=== PATIENT | male | born 1985 | race African-American/Black ===

== ENCOUNTER 2024-08-26 12:33 | Outpatient (AMB) | payer OTHER, SELFPAY ==
--- NOTE | 2024-08-26 12:34 | A.OFFPC_ITS ---
Vital Signs 08/26/24 12:38 Height 5 ft 8 in Weight 175 lb 4 oz BMI 26.6 BP 112/72 Blood Pressure Location Rt brachial Position Sitting Pulse 50 Pulse Source Pulse Oximeter Pulse Oximetry (%) 98 Oxygen Delivery Method Room Air Intake Visit Reasons: Est Care/Requesting PE Allergies No Known Allergies Allergy (Verified 08/26/24 12:39) Medication List - Last Reconciled 08/26/24 by Yamileth Weber MD No Known Home Meds Tobacco use date assessed: 08/26/24 Dental Screening Dental Screen Date: 08/26/24 Did you have a dental visit in the last 12 months?: Yes Did you have a dental problem in the last 6 months where you did not have access to dental care?: No Was dental information given to patient?: Patient has dentist HPI Est Care/Requesting PE HPI Details Patient is a 39-year-old gentlemen who work in if was Came in for establish care visit and physical exam Patient has no medical problem and taking no medication However he would like to talk about feeling depressed which has been happening for a while Patient says that he has a very stressful job and over the years it has taken its toll His has noticed that he is more irritable And when he comes home he does not have enough time for his 4 children He is also having difficulty sleeping He says that he enjoys his job but he is hardworking and like to get his job done He is requesting medication And therapy I have sent sertraline 25 mg tablet he is to start 1 in the morning Lab order placed to be done fasting And I have sent message to our behavior health coordinator so we can help him set up with a therapist Patient is to return in 3 weeks for follow-up appointment [facility] Social History Housing: House Patient Tobacco Use Status: Never used Tobacco e-Cigarette/Vaping Use: Never Used service: Yes Current occupational status: employed Cognitive needs: No Hearing needs: No Vision needs: No Questionnaire PHQ-9 Over the last 2 weeks, how often have you been bothered by any of the following problems? 1. Little interest or pleasure in doing things: several days 2. Feeling down, depressed, or hopeless: several days 3. Trouble falling or staying asleep, or sleeping too much: several days 4. Feeling tired or having little energy: several days 5. Poor appetite or overeating: not at all 6. Feeling bad about yourself - or that you are a failure or have let yourself or your family down: not at all 7. Trouble concentrating on things, such as reading the newspaper or watching television: not at all 8. Moving or speaking so slowly that other people could have noticed. Or the opposite - being so fidgety or restless that you have been moving around a lot more than usual: not at all 9. Thoughts that you would be better off or of hurting yourself in some way: not at all Total score: 4 Depression Screening Interpretation: Negative Depression Screening Done: Yes 56504 - PHQ-9 Billing: Yes Source: Developed by Drs. Brian Ang, Lisa Gomez, Johan Ivy and colleagues, with an educational tammi from [employer]. Thrive Questionnaire I am a: Patient What is your living situation today?: I have a steady place to live Within the past 12 months, did the food you bought not last and you didn't have the money to get more?: Never true Within the past 12 months, did you worry whether your food would run out before you got money to buy more?: Never true Do you have trouble paying for medicines?: No Do you have trouble getting transportation to medical appointments?: No Do you have trouble paying your heating and electricity bill?: No Do you have trouble taking care of your child, family member or friend?: No Do you have trouble with day-to-day activities such as bathing, preparing meals, shopping, managing finances, etc.?: No Are you interested in more education?: Yes Please select the resources that you would like help with: None Currently or been in a relationship where the following occur: No concerns reported THRIVE Score: 0 AUDIT C Alcohol Use Questionnaire (AUDIT-C) 1. How often do you have a drink containing alcohol?: Monthly or less 2. How many drinks containing alcohol do you have on a typical day when you are drinking?: 1 or 2 3. How often do you have six or more drinks on one occasion?: Never Total Score: 1 LINCOLN-7 AMB Questionnaire LINCOLN-7 Feeling nervous, anxious, or on edge: 0 = Not at all Not being able to stop or control worryin = Not at all Worrying too much about different things: 0 = Not at all Trouble relaxin = Several days Being so restless that it is hard to sit still: 0 = Not at all Becoming easily annoyed or irritable: 1 = Several days Feeling afraid as if something awful might happen: 0 = Not at all Total LINCOLN-7 score (0-4 normal; 5-9 mild; 10-14 moderate; 15-21 severe): 2 Source: Developed by Drs. Brian Ang, Lisa Gomez, Johan Ivy and colleagues, with an educational tammi from [employer]. Review of Systems Const Denies chills, Denies fever(s) and Denies headache(s) Eyes Denies blurry vision ENT Denies headache(s), Denies nasal discharge, Denies nasal obstruction, Denies odynophagia and Denies sinus pain Card Denies chest pain at rest and Denies chest pain with activity Resp Denies cough and Denies hemoptysis GI Denies diarrhea, Denies odynophagia, Denies vomiting and Denies hematemesis Reports as per HPI Musc Denies abnormal gait Skin/Breast Reports as per HPI Neuro Denies Neuro-related abnormal movements, Denies Abnormal speech present, Denies abnormal gait, Denies headache(s) and Denies Sensory deficit (Neuro) Psych Denies mood swings and Denies paranoia Endo Reports as per HPI Manuel/Lymph Reports as per HPI Aller/Immun Reports as per HPI Physical exam (Primary Care) Vital Signs: Last Vital Signs Pulse 50 08/26/24 12:38 BP 112/72 08/26/24 12:38 Pulse Ox 98 08/26/24 12:38 Oxygen Delivery Method Room Air 08/26/24 12:38 BMI result Body Mass Index 26.6 Tobacco/Smoking Status: Tobacco use Status Tobacco use date assessed 08/26/24 08/26/24 12:38 Patient Tobacco Use Status Never used Tobacco 08/26/24 12:42 e-Cigarette/Vaping Use Never Used 08/26/24 12:42 PHQ-9: PHQ-9 Score PHQ-9: Total score 4 08/26/24 12:57 Depression Screening Interpretation: Negative Currently or been in a relationship where the following occur: No concerns reported Const General: cooperative, comfortable and no acute distress Orientation/consciousness: patient oriented x3 HENMT Head: Yes normocephalic and Yes atraumatic Eyes General: appearance normal, both eyes and all related structures Pupils: Equal, round and reactive pupils present EOM: EOMs intact bilaterally Neck Neck: Yes supple and No lymphadenopathy Thyroid: Thyroid normal Lymphatic: no lymphadenopathy noted Resp Effort & Inspection: normal respiratory effort and able to speak in complete sentences Auscultation: clear to auscultation bilaterally Cardio Heart sounds: S1 normal heart sound present and S2 normal heart sound present GI Palpation (GI): Soft to palpation and nontender Auscultation: normal bowel sounds General: Yes no CVA tenderness Back/Spine/Pelvis Back: no CVA tenderness Skin General skin exam: elasticity normal and turgor normal Neuro General: patient oriented x3 and gait normal Cranial nerves: Yes Equal, round and reactive pupils present Speech: No Abnormal speech present Sensory Exam: No Sensory deficit (Neuro) Coordination: tandem gait normal and Romberg test negative Extrem General: Yes normal exam except as noted and No edema Coding Level of Care Code New Pt Level 4 (34830) New Pt Prev Care 40-64y(20047) Diagnoses Encounter for general adult medical examination with abnormal findings Z00.01 Mild episode of recurrent major depressive disorder F33.0 Active/Remission status: currently active Major depression episode severity: mild Difficulty sleeping G47.9 Stress at work Z56.6 Assessment & Plan Assessment & Plan (1) Encounter for general adult medical examination with abnormal findings: Code(s): Z00.01 - Encounter for general adult medical examination with abnormal findings Category: Medical (2) Major depression, recurrent: Code(s): F33.9 - Major depressive disorder, recurrent, unspecified Category: Medical Qualifiers: Active/Remission status: currently active Major depression episode severity: mild Qualified Code(s): F33.0 - Major depressive disorder, recurrent, mild (3) Difficulty sleeping: Code(s): G47.9 - Sleep disorder, unspecified Category: Medical (4) Stress at work: Code(s): Z56.6 - Other physical and mental strain related to work Category: Social Hx Plan Patient is a 39-year-old gentlemen who work in if was Came in for establish care visit and physical exam Patient has no medical problem and taking no medication However he would like to talk about feeling depressed which has been happening for a while Patient says that he has a very stressful job and over the years it has taken its toll His has noticed that he is more irritable And when he comes home he does not have enough time for his 4 children He is also having difficulty sleeping He says that he enjoys his job but he is hardworking and like to get his job done He is requesting medication And therapy I have sent sertraline 25 mg tablet he is to start 1 in the morning Lab order placed to be done fasting And I have sent message to our behavior health coordinator so we can help him set up with a therapist Patient is to return in 3 weeks for follow-up appointment Orders: Orders Lipid Panel Today F33.9 - Major depressive disorder, recurrent, unspecified, G47.9 - Sleep disorder, unspecified, Z00.01 - Encounter for general adult medical examination with abnormal findings, Z56.6 - Other physical and mental strain related to work TSH reflex Free T4 Today F33.9 - Major depressive disorder, recurrent, unspecified, G47.9 - Sleep disorder, unspecified, Z00.01 - Encounter for general adult medical examination with abnormal findings, Z56.6 - Other physical and mental strain related to work Complete Blood Count Auto Diff Today F33.9 - Major depressive disorder, recurrent, unspecified, G47.9 - Sleep disorder, unspecified, Z00.01 - Encounter for general adult medical examination with abnormal findings, Z56.6 - Other physical and mental strain related to work Comprehensive [place]. Panel Fast Today F33.9 - Major depressive disorder, recurrent, unspecified, G47.9 - Sleep disorder, unspecified, Z00.01 - Encounter for general adult medical examination with abnormal findings, Z56.6 - Other physical and mental strain related to work Medications: New sertraline 25 mg PO DAILY 30 tabs 0RF
[2024-08-26 12:38] VITALS: BP 112/72; PULSE 50; O2SAT 98; BMI 26.6
== END 2024-08-26 13:35 | disposition home or self-care (01) ==
PROVIDERS: Visit Provider Internal Medicine
DX: Z00.00 Encounter for general adult medical examination without abnormal findings (principal); F33.0 Major depressive disorder, recurrent, mild; G47.9 Sleep disorder, unspecified; Z56.6 Other physical and mental strain related to work

== ENCOUNTER → 2024-08-26 12:33 | Outpatient (BNVA) | payer OTHER, SELFPAY | PROVIDERS: Visit Provider Internal Medicine | DX: Z00.01 Encounter for general adult medical examination with abnormal findings (principal); F33.0 Major depressive disorder, recurrent, mild; G47.9 Sleep disorder, unspecified; Z56.6 Other physical and mental strain related to work | CPT/HCPCS: 96127; 99202 ==

== ENCOUNTER 2024-08-27 09:06 | Outpatient (REF) | payer OTHER, SELFPAY ==
[2024-08-27 13:04] LABS: MANUAL DIFF FLAG NO
[2024-08-27 13:06] LABS: Basophils Percent Auto 0.8 % (0-2); Eosinophils Absolute Auto 0.2 X10*3/uL (0.0-0.4); Eosinophils Percent Auto 3.9 % (0-4); Hemoglobin 13.6 g/dl (14.0-18.0); Lymphocytes Absolute Auto 1.1 X10*3/uL (1.2-4.9); Lymphocytes Percent Auto 28.8 % (20-40); Mean Corpuscular Hemoglobin 27.6 pg (27.0-33.0); Mean Corpuscular Volume 81.3 fL (80.0-98.0); Mean Platelet Volume 9.2 fL (9.4-12.4); Monocytes Absolute Auto 0.3 X10*3/uL (0.1-1.2); Monocytes Percent Auto 6.7 % (2-11); Neutrophils Absolute Auto 2.3 x10*3/uL (2.0-8.3); Neutrophils Percent Auto 59.8 % (45-73); Platelet Count 253 X10*3/uL (160-400); Red Blood Count 4.92 X10*6/uL (4.60-5.80); White Blood Count 3.9 X10*3/uL (4.8-10.8)
[2024-08-27 13:39] LABS: Alanine Aminotransferase 25 U/L (0-40); Albumin Level 4.4 g/dL (3.5-5.0); Alkaline Phosphatase 36 U/L (39-117); Anion Gap 12 (12-20); Aspartate Amino Transferase 23 U/L (5-37); Bilirubin Total 0.8 mg/dL (0.0-1.0); Blood Urea Nitrogen 10 mg/dL (9-16); Carbon Dioxide 27 mmol/L (22-29); Chloride 107 mmol/L (96-108); Cholesterol 199 mg/dL (<200); Estimated Glomerular Filt Rate > 60; Glucose Fasting 87 mg/dL (60-99); HDL Cholesterol 55 mg/dL (>40); LDL Cholesterol Calculated 130 mg/dL (<100); Potassium 4.3 mmol/L (3.3-5.1); Sodium 142 mmol/L (135-145); Total Protein 7.7 g/dL (6.5-8.0); Triglycerides 73 mg/dL (<150)
[2024-08-27 13:43] LABS: TSH reflex Free T4 0.73 uIU/mL (0.32-4.0)
== END 2024-08-27 09:07 | disposition home or self-care (01) ==
LOC: HO.HMGCLDS 09:06
PROVIDERS: PCP Internal Medicine; Visit Provider Internal Medicine
DX: Z00.01 Encounter for general adult medical examination with abnormal findings (principal); F33.9 Major depressive disorder, recurrent, unspecified; G47.9 Sleep disorder, unspecified; Z56.6 Other physical and mental strain related to work
CPT/HCPCS: 36415; 80053; 80061; 84443; 85025

== ENCOUNTER 2024-09-18 08:32 | Outpatient (AMB) | payer OTHER, SELFPAY ==
--- NOTE | 2024-09-18 08:34 | MHC.PC.OV ---
Vital Signs 09/18/24 08:36 Height 5 ft 8 in Weight 175 lb 8 oz BMI 26.7 BP 112/74 Blood Pressure Location Rt brachial Position Sitting Pulse 52 Pulse Source Pulse Oximeter Pulse Oximetry (%) 98 Oxygen Delivery Method Room Air Intake Visit Reasons: 3 week follow up Allergies No Known Allergies Allergy (Verified 09/18/24 08:39) Medication List - Last Reconciled 09/18/24 by Yamileth Weber MD sertraline 25 mg PO DAILY Tobacco use date assessed: 09/18/24 Dental Screening Dental Screen Date: 09/18/24 Did you have a dental visit in the last 12 months?: Yes Did you have a dental problem in the last 6 months where you did not have access to dental care?: No Was dental information given to patient?: Patient has dentist HPI 3 week follow up HPI Details Patient is a 39-year-old gentleman came in today for three-month follow-up appointment on irritable mood He was started on sertraline 25 mg, patient tolerated medication well however sees no effect I am increasing the dose to 50 mg He will be starting therapy today Labs done recently reviewed Hemoglobin is slightly low, we will repeat that again in 2 months before his follow-up appointment [facility]LY [facility] Social History Housing: House Patient Tobacco Use Status: Never used Tobacco e-Cigarette/Vaping Use: Never Used service: Yes Current occupational status: employed Cognitive needs: No Hearing needs: No Vision needs: No Questionnaire PHQ-9 Over the last 2 weeks, how often have you been bothered by any of the following problems? 1. Little interest or pleasure in doing things: not at all 2. Feeling down, depressed, or hopeless: not at all 3. Trouble falling or staying asleep, or sleeping too much: not at all 4. Feeling tired or having little energy: not at all 5. Poor appetite or overeating: not at all 6. Feeling bad about yourself - or that you are a failure or have let yourself or your family down: not at all 7. Trouble concentrating on things, such as reading the newspaper or watching television: not at all 8. Moving or speaking so slowly that other people could have noticed. Or the opposite - being so fidgety or restless that you have been moving around a lot more than usual: not at all 9. Thoughts that you would be better off or of hurting yourself in some way: not at all Total score: 0 Depression Screening Interpretation: Negative Depression Screening Done: Yes 31760 - PHQ-9 Billing: Yes Source: Developed by Drs. Brian Ang, Lisa Gomez, Johan Ivy and colleagues, with an educational tammi from [employer]. Thrive Questionnaire Date Thrive assessed: 09/18/24 I am a: Patient What is your living situation today?: I have a steady place to live Within the past 12 months, did the food you bought not last and you didn't have the money to get more?: Never true Within the past 12 months, did you worry whether your food would run out before you got money to buy more?: Never true Do you have trouble paying for medicines?: No Do you have trouble getting transportation to medical appointments?: No Do you have trouble paying your heating and electricity bill?: No Do you have trouble taking care of your child, family member or friend?: No Do you have trouble with day-to-day activities such as bathing, preparing meals, shopping, managing finances, etc.?: No Are you currently unemployed and looking for a job?: No Are you interested in more education?: Yes Please select the resources that you would like help with: None Currently or been in a relationship where the following occur: No concerns reported THRIVE Score: 0 AUDIT C Alcohol Use Questionnaire (AUDIT-C) 1. How often do you have a drink containing alcohol?: Monthly or less 2. How many drinks containing alcohol do you have on a typical day when you are drinking?: 1 or 2 3. How often do you have six or more drinks on one occasion?: Never Total Score: 1 Score Reviewed/Action Taken: Yes LINCOLN-7 AMB Questionnaire LINCOLN-7 Date LINCOLN - 7 assessed: 09/18/24 Feeling nervous, anxious, or on edge: 0 = Not at all Not being able to stop or control worryin = Not at all Worrying too much about different things: 0 = Not at all Trouble relaxin = Not at all Being so restless that it is hard to sit still: 0 = Not at all Becoming easily annoyed or irritable: 0 = Not at all Feeling afraid as if something awful might happen: 0 = Not at all Total LINCOLN-7 score (0-4 normal; 5-9 mild; 10-14 moderate; 15-21 severe): 0 Source: Developed by Drs. Brian Ang, Lisa Gomez, Johan Ivy and colleagues, with an educational tammi from [employer]. LINCOLN-7 Assessment Billing LINCOLN-7 Assessment Tool: LINCOLN-7 Assessment 26046 Review of Systems Const Denies chills and Denies fever(s) ENT Denies epistaxis and Denies nasal discharge Card Denies chest pain Resp Denies chest congestion, Denies cough and Denies hemoptysis GI Denies diarrhea and Denies nausea Skin/Breast Denies rash Neuro Reports no additional complaints Psych Reports no additional complaints Endo Reports no additional complaints Physical exam (Primary Care) Vital Signs: Last Vital Signs Pulse 52 09/18/24 08:36 BP 112/74 09/18/24 08:36 Pulse Ox 98 09/18/24 08:36 Oxygen Delivery Method Room Air 09/18/24 08:36 BMI result Body Mass Index 26.7 Tobacco/Smoking Status: Tobacco use Status Tobacco use date assessed 09/18/24 09/18/24 08:40 Patient Tobacco Use Status Never used Tobacco 09/18/24 08:40 e-Cigarette/Vaping Use Never Used 09/18/24 08:40 PHQ-9: PHQ-9 Score PHQ-9: Total score 0 09/18/24 08:40 Depression Screening Interpretation: Negative Thrive Assessment: Date of Thrive Assessment Date Thrive assessed 09/18/24 09/18/24 08:40 Currently or been in a relationship where the following occur: No concerns reported Const General: cooperative, comfortable and no acute distress Orientation/consciousness: patient oriented x3 HENMT Head: Yes normocephalic Eyes General: appearance normal, both eyes and all related structures Neck Neck: Yes supple Resp Effort & Inspection: normal respiratory effort, no cough and no stridor Skin General skin exam: turgor normal Neuro General: patient oriented x3, tone normal and moves all extremities Extrem Right lower extremity: no edema Left lower extremity: no edema Coding Level of Care Code Est Pt Level 3 (50475) Diagnoses Microcytic anemia D50.9 Mild episode of recurrent major depressive disorder F33.0 Active/Remission status: currently active Major depression episode severity: mild Difficulty sleeping G47.9 Additional Codes LINCOLN-7 Assessment Billing - LINCOLN-7 Assessment Tool: LINCOLN-7 Assessment 87910 ([id number]) Assessment & Plan Assessment & Plan (1) Microcytic anemia: Code(s): D50.9 - Iron deficiency anemia, unspecified Category: Medical (2) Major depression, recurrent: Code(s): F33.9 - Major depressive disorder, recurrent, unspecified Category: Medical Qualifiers: Active/Remission status: currently active Major depression episode severity: mild Qualified Code(s): F33.0 - Major depressive disorder, recurrent, mild (3) Difficulty sleeping: Code(s): G47.9 - Sleep disorder, unspecified Category: Medical Plan Patient is a 39-year-old gentleman came in today for three-month follow-up appointment on irritable mood He was started on sertraline 25 mg, patient tolerated medication well however sees no effect I am increasing the dose to 50 mg He will be starting therapy today Labs done recently reviewed Hemoglobin is slightly low, we will repeat that again in 2 months before his follow-up appointmen Orders: Orders Complete Blood Count Auto Diff Today D50.9 - Iron deficiency anemia, unspecified Vitamin B12 Today D50.9 - Iron deficiency anemia, unspecified Ferritin Today D50.9 - Iron deficiency anemia, unspecified Medications: Changed From sertraline 25 mg PO DAILY 30 tabs 0RF To sertraline 50 mg PO DAILY 90 tabs 0RF 90 days
[2024-09-18 08:36] VITALS: BP 112/74; PULSE 52; O2SAT 98; BMI 26.7
== END 2024-09-18 08:50 | disposition home or self-care (01) ==
PROVIDERS: Visit Provider Internal Medicine
DX: D50.9 Iron deficiency anemia, unspecified (principal); F33.0 Major depressive disorder, recurrent, mild; G47.9 Sleep disorder, unspecified

== ENCOUNTER → 2024-09-18 08:32 | Outpatient (BNVA) | payer OTHER, SELFPAY | PROVIDERS: Visit Provider Internal Medicine | DX: D50.9 Iron deficiency anemia, unspecified (principal); F33.0 Major depressive disorder, recurrent, mild; G47.9 Sleep disorder, unspecified | CPT/HCPCS: 96127; 99212 ==

== ENCOUNTER 2024-10-21 15:01 | Outpatient (REF) | payer OTHER, SELFPAY ==
[2024-10-22 01:58] LABS: CT PCR NOT DETECTED (Not Detect.); NG PCR NOT DETECTED (Not Detect.)
[2024-10-22 08:18] LABS: HBS Num1 46.58 mIU/mL (0-7.99); HIV AB/AG Nonreactive (Nonreactive); HIV Num 1 0.05 S/CO (0.00-0.99); ~HepC Num1 0.16 S/CO (0.00-0.79); ~Hepatitis B Surface Antibody REACTIVE (Nonreactive); ~Hepatitis C Antibody Nonreactive (Nonreactive)
[2024-10-22 08:32] LABS: Syphilis Screen Nonreactive (Nonreactive)
[2024-10-23 18:53] LABS: Herpes Simplex Type 2 IgG <0.90 index
== END 2024-10-21 15:02 | disposition home or self-care (01) ==
LOC: HO.HMGCLDS 15:01
PROVIDERS: PCP Internal Medicine; Visit Provider Internal Medicine
DX: Z20.2 Contact with and (suspected) exposure to infections with a predominantly sexual mode of transmission (principal)
CPT/HCPCS: 36415; 86695; 86696; 86706; 86780; 86803; 87389; 87491; 87591; 99212

== ENCOUNTER 2024-10-21 15:01 | Outpatient (AMB) | payer OTHER, SELFPAY ==
[2024-10-21 15:04] VITALS: BP 118/84; PULSE 67; O2SAT 100; BMI 26.2
--- NOTE | 2024-10-21 15:04 | A.OFFPC_ITS ---
Vital Signs 10/21/24 15:04 Height 5 ft 8 in Weight 172 lb 2 oz BMI 26.2 BP 118/84 Blood Pressure Location Rt brachial Position Sitting Pulse 67 Pulse Source Pulse Oximeter Pulse Oximetry (%) 100 Oxygen Delivery Method Room Air Intake Visit Reasons: STD check Allergies No Known Allergies Allergy (Verified 10/21/24 15:06) Medication List - Last Reconciled 10/21/24 by Yamileth Weber MD sertraline 50 mg PO DAILY 90 days Tobacco use date assessed: 10/21/24 Dental Screening Dental Screen Date: 09/18/24 HPI STD check HPI Details Chief Complaint Request for a full sexually transmitted disease screening following spouse's positive chlamydia test. Assessment and Plan 39-year-old male with no history of sexu ally transmitted diseases presenting for a full STD screening due to his 's recent positive test for chlamydia. The patient denies any penile discharge, dysuria, or lower back pain. The possibilit y of a false positive could be considered, yet due to the 's confirmed diagnosis, a proactive approach involving empirical treatment and laboratory testing was deemed appropriate. 1. Chlamydia Infection A full STD screening was requested, comprising a urine test for chlamydia and gonorrhea, and a blood test for HIV, syphilis, herpes, and hepatitis. The patient was instructed to provide urine and blood samples. Pending lab availability, the patient was advised to return if needed due to holiday closures. Given the 's positive chlamydia test, empirical antibiotic prescription will be administered without awaiting lab results. The patient is informed about the importance of taking the antibiotics promptly and the need for both partners to be treated. Problem List - Chlamydia infection Patient Instructions - Provide urine and blood samples for ST D screening as directed. - Start the prescribed antibiotic regime n immediately; do not wait for test results. - Ensure sexual partners are treated sim ultaneously. - Be aware of lab closures and plan [facility] le submissions accordingly. - Report any symptoms such as discharge, pain on urination, or back pain if they occur. [facility] Social History Housing: House Patient Tobacco Use Status: Never used Tobacco e-Cigarette/Vaping Use: Never Used service: Yes Current occupational status: employed Cognitive needs: No Hearing needs: No Vision needs: No Questionnaire Thrive Questionnaire Date Thrive assessed: 08/26/24 I am a: Patient What is your living situation today?: I have a steady place to live Within the past 12 months, did the food you bought not last and you didn't have the money to get more?: Never true Within the past 12 months, did you worry whether your food would run out before you got money to buy more?: Never true Do you have trouble paying for medicines?: No Do you have trouble getting transportation to medical appointments?: No Do you have trouble paying your heating and electricity bill?: No Do you have trouble taking care of your child, family member or friend?: No Do you have trouble with day-to-day activities such as bathing, preparing meals, shopping, managing finances, etc.?: No Are you currently unemployed and looking for a job?: No Are you interested in more education?: Yes Please select the resources that you would like help with: None Currently or been in a relationship where the following occur: No concerns reported THRIVE Score: 0 LINCOLN-7 AMB Questionnaire LINCOLN-7 Date LINCOLN - 7 assessed: 09/18/24 Source: Developed by Drs. Brian Ang, Lisa Gomez, Johan Ivy and colleagues, with an educational tammi from [employer]. Review of Systems Const All systems reviewed & are unremarkable except as noted in HPI and below Physical exam (Primary Care) Vital Signs: Last Vital Signs Pulse 67 10/21/24 15:04 BP 118/84 10/21/24 15:04 Pulse Ox 100 10/21/24 15:04 Oxygen Delivery Method Room Air 10/21/24 15:04 BMI result Body Mass Index 26.2 Tobacco/Smoking Status: Tobacco use Status Tobacco use date assessed 10/21/24 10/21/24 15:06 Patient Tobacco Use Status Never used Tobacco 10/21/24 15:06 e-Cigarette/Vaping Use Never Used 10/21/24 15:06 Thrive Assessment: Date of Thrive Assessment Date Thrive assessed 08/26/24 10/21/24 15:06 Currently or been in a relationship where the following occur: No concerns reported Const General: no acute distress Orientation/consciousness: patient oriented x3 Eyes General: appearance normal, both eyes and all related structures Resp Effort & Inspection: normal respiratory effort and able to speak in complete sentences Neuro General: patient oriented x3 Psych Mental Status: mental status grossly normal Coding Level of Care Code Est Pt Level 3 (08529) Diagnoses STD exposure Z20.2 Assessment & Plan Assessment & Plan (1) STD exposure: Code(s): Z20.2 - Contact with and (suspected) exposure to infections with a predominantly sexual mode of transmission Category: Medical Plan Chief Complaint Request for a full sexually transmitted disease screening following spouse's positive chlamydia test. Assessment and Plan 39-year-old male with no history of sexually transmitted diseases presenting for a full STD screening due to his 's recent positive test for chlamydia. The patient denies any penile discharge, dysuria, or lower back pain. The possibility of a false positive could be considered, yet due to the 's confirmed diagnosis, a proactive approach involving empirical treatment and laboratory testing was deemed appropriate. 1. Chlamydia Infection A full STD screening was requested, comprising a urine test for chlamydia and gonorrhea, and a blood test for HIV, syphilis, herpes, and hepatitis. The patient was instructed to provide urine and blood samples. Pending lab availabil ity, the patient was advised to return if needed due to holiday closures. Given the 's positive chlamydia test, empirical antibiotic prescription will be administered without awaiting lab results. The patient is informed about the importance of taking the antibiotics promptly and the need for both partners to be treated. Problem List - Chlamydia infection Patient Instructions - Provide urine and blood samples for STD screening as directed. - Start the prescribed antibiotic regimen immediately; do not wait for test results. - Ensure sexual partners are treated simultaneously. - Be aware of lab closures and plan sample submissions accordingly. - Report any symptoms such as discharge, pain on urination, or back pain if they occur. Orders: Orders Hepatitis C Antibody Today Z20.2 - Contact with and (suspected) exposure to infections with a predominantly sexual mode of transmission Syphilis Screen Today Z20.2 - Contact with and (suspected) exposure to infections with a predominantly sexual mode of transmission CT NG by PCR Today Z20.2 - Contact with and (suspected) exposure to infections with a predominantly sexual mode of transmission HIV Ab/Ag Today Z20.2 - Contact with and (suspected) exposure to infections with a predominantly sexual mode of transmission Herpes Simplex Virus Ab IgG Today Z20.2 - Contact with and (suspected) exposure to infections with a predominantly sexual mode of transmission Hepatitis B Surface Antibody Today Z20.2 - Contact with and (suspected) exposure to infections with a predominantly sexual mode of transmission Medications: New doxycycline hyclate 100 mg PO BID 14 caps 0RF 7 days
== END 2024-10-21 15:34 | disposition home or self-care (01) ==
PROVIDERS: PCP Internal Medicine; Visit Provider Internal Medicine
DX: Z20.2 Contact with and (suspected) exposure to infections with a predominantly sexual mode of transmission (principal)

== ENCOUNTER 2024-10-29 08:45 | Outpatient (AMB) | payer OTHER, SELFPAY ==
--- NOTE | 2024-10-29 09:13 | A.OFFPC_ITS ---
Intake Visit Reasons: Discuss Results Allergies No Known Allergies Allergy (Verified 10/29/24 09:14) Medication List - Last Reconciled 10/30/24 by Yamileth Weber MD sertraline 50 mg PO DAILY 90 days Tobacco use date assessed: 10/29/24 Dental Screening Dental Screen Date: 10/29/24 Did you have a dental visit in the last 12 months?: Yes Did you have a dental problem in the last 6 months where you did not have access to dental care?: No Was dental information given to patient?: Patient has dentist HPI Discuss Results HPI Details Chief Complaint Clarification of laboratory test results showing Herpes Simplex Virus Type 1 (HSV-1) positivity without history of cold sores. Assessment and Plan 39-year-old male presenting with concern s over the interpretation of recent la boratory test results identified as positive for Herpes Simplex Virus Type 1 (HSV-1). The patient denies any history of symptomatic cold sores, though the serology confirms HSV-1 infection. All other sexually transmitted infection screenings, including HIV, gonorrhea, chlamydia, syphilis, and hepatitis C, returned negative results. The patient has immunity to Hepatitis B, likely attributable to prior vaccination, as indicated by the presence of antibodies. The patient seeks reassurance and clarification regarding the infectivity and potential transmission risks associated with his HSV-1 status. 1. Herpes Simplex Virus Type 1 Hsv-1 Discussed the nature of HSV-1 infection, emphasizing that asymptomatic individuals can still carry the virus. Explained that transmission occurs primar amanda through mucus membrane contact during active lesion phases. Advised on avoiding kissing and oral-genital contact when lesions are present to minimize transmission risk. No active treatment is required unless symptomatic lesions occur. 2. Immunity To Hepatitis B Acknowledged that the presence of antibodies suggests immunity, likely from previous vaccination. No further intervention is necessary, but continued monitoring for hepatitis status is routine. Problem List - Herpes Simplex Virus Type 1 (HSV-1) - Immunity to Hepatitis B Patient Instructions - Avoid intimate contact such as kissing or oral-genital contact when experiencing any form of active HSV-1 lesion to prevent transmission. - Maintain routine health check-ups and monitor for any new symptoms or lesions. - Keep up to date with routine immunizat ions and health screenings. - Contact healthcare provider if new sym ptoms develop or for further queries regarding HSV-1 management. [facility] Social History Housing: House Patient Tobacco Use Status: Never used Tobacco e-Cigarette/Vaping Use: Never Used service: Yes Current occupational status: employed Cognitive needs: No Hearing needs: No Vision needs: No Questionnaire Thrive Questionnaire Date Thrive assessed: 08/26/24 AUDIT C Alcohol Use Questionnaire (AUDIT-C) 1. How often do you have a drink containing alcohol?: Monthly or less 2. How many drinks containing alcohol do you have on a typical day when you are drinking?: 1 or 2 3. How often do you have six or more drinks on one occasion?: Never Total Score: 1 Score Reviewed/Action Taken: Yes LINCOLN-7 AMB Questionnaire LINCOLN-7 Date LINCOLN - 7 assessed: 09/18/24 Source: Developed by Drs. Brian Ang, Lisa Gomez, Johan Ivy and colleagues, with an educational tammi from [employer] by [employer]. Review of Systems Const Denies chills and Denies fever(s) ENT Denies epistaxis and Denies nasal discharge Card Denies chest pain Resp Denies chest congestion, Denies cough and Denies hemoptysis GI Denies diarrhea and Denies nausea Skin/Breast Denies rash Neuro Reports no additional complaints Psych Reports no additional complaints Endo Reports no additional complaints Physical exam (Primary Care) Tobacco/Smoking Status: Tobacco use Status Tobacco use date assessed 10/29/24 10/29/24 09:15 Patient Tobacco Use Status Never used Tobacco 10/29/24 09:15 e-Cigarette/Vaping Use Never Used 10/29/24 09:15 Thrive Assessment: Date of Thrive Assessment Date Thrive assessed 08/26/24 10/29/24 09:15 Telehealth Telehealth Telehealth Platform: [facility] Location of provider rendering services: practice address Location of patient: address on file Patient Identification confirmed using: Name, : Yes Telehealth method: voice only Patient verbally consented to treatment: Yes Patient verbally consented to billing insurance company: Yes Patient informed of any privacy concerns related to visit: Yes Minutes spent on Phone/Video with Pt.: 12 Coding Level of Care Code Tele Est Pt Level 3 (75424) Diagnoses Herpes simplex type 1 antibody positive B00.9 Assessment & Plan Assessment & Plan (1) Herpes simplex type 1 antibody positive: Code(s): B00.9 - Herpesviral infection, unspecified Category: Medical Plan Chief Complaint Clarification of laboratory test results showing Herpes Simplex Virus Type 1 (HSV-1) positivity without history of cold sores. Assessment and Plan 39-year-old male presenting with concerns over the interpretation of recent laboratory test results identified as positive for Herpes Simplex Virus Type 1 (HSV-1). The patient denies any history of symptomatic cold sores, though the serology confirms HSV-1 infection. All other sexually transmitted infection screenings, including HIV, gonorrhea, chlamydia, syphilis, and hepatitis C, returned negative results. The patient has immunity to Hepatitis B, likely attributable to prior vaccination, as indicated by the presence of antibodies. The patient seeks reassurance and clarification regarding the infectivity and potential transmission risks associated with his HSV-1 status. 1. Herpes Simplex Virus Type 1 Hsv-1 Discussed the nature of HSV-1 infection, emphasizing that asymptomatic individuals can still carry the virus. Explained that transmission occurs primarily through mucus membrane contact during active lesion phases. Advised on avoiding kissing and oral-genital contact when lesions are present to minimize transmission risk. No active treatment is required unless symptomatic lesions occur. 2. Immunity To Hepatitis B Acknowledged that the presence of antibodies suggests immunity, likely from previous vaccination. No further intervention is necessary, but continued monitoring for hepatitis status is routine. Problem List - Herpes Simplex Virus Type 1 (HSV-1) - Immunity to Hepatitis B Patient Instructions - Avoid intimate contact such as kissing or oral-genital contact when experiencing any form of active HSV-1 lesion to prevent transmission. - Maintain routine health check-ups and monitor for any new symptoms or lesions. - Keep up to date with routine immunizations and health screenings. - Contact healthcare provider if new symptoms develop or for further queries regarding HSV-1 management.
--- OUTSIDE RECORDS SUMMARY | 2024-11-04 00:29 | XMS_ITS | Continuity of Care Document ---
Author Name [facility] Organization [facility] Care Team Providers Care Lead Accountant Name Role Phone [facility] Unavailable Unavailable Problems Combined list of problems from Department of Defense and Veterans Affairs facilities. It does not include entries that were removed or entered in error. 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 Active Condition DoD right ankle joint pain Active Condition DoD visit for: administrative purpose Inactive Condition DoD sickle cell trait Active Condition DoD ankle sprain right Inactive Condition DoD joint pain, localized in the knee Inactive Condition DoD visit for: services physical Inactive Condition DoD Need For Vaccination Against Influenza Inactive Condition DoD Patient Counseling Medical Management Individual Patient Inactive Condition DoD assessment of patient condition work-related Inactive Condition DoD essential hypertension benign Inactive Condition DoD Need For Vaccination Hepatitis A Inactive Condition Pt. received Adult Hep A by [employer] Lot#[id number], expiration date 07 Nov 2008 on 12 Aug 2008. The vaccine was given in the vaccine was given in the left arm. Administered by, TSgt Kristy Cunningham Independent Duty Document Restorer. All VIS's were received. DoD Need For Vaccination Polio Inactive Condition Pt. receiv ed IPV by Sanofi Pasteur, Lot# [id number], expiration date Aug 03 on Aug 02. The vaccine was given in the left leg. Administered by, TSgt Kristy Cunningham Independent Duty Document Restorer. All VIS's were received. DoD Other Physical Therapy Inactive Condition DoD orthopedic disorders impingement syndrome shoulder Inactive Condition DoD tendonitis rotator cuff Inactive Condition DoD Blood Pressure Isolated Elevated Inactive Condition Pt. was se en for 2 day bp check. His avg bp for day #1 is 134/67, and day #2 was 131/75. Diet and exercised were stressed. Pt was instructed to f/u with the provider within a month. DoD tendonitis shoulder Inactive Condition Refer to PT for rehab. Obtain x-ray. Discussed use of meds. Relative rest/activiy modification. RTC 3 weeks or prn. 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 Medication Details Route Status Patient Instructions Prescription Expires Prescription Number Last Dispense Date Ordering Provider Order Date Order Qty Source acetaminoph en 325 mg oral tablet 3 tab(s), Oral, every 6 hr, PRN pain or fever, not to exceed 4000 mg/day, # 30 tab(s), 0 total refill(s ), Maintena nce, 3 tab(s) Oral every 6 hr,x7 days,PRN :as needed for pain or fever,In str:not to exceed 4000 mg/day, Pharmacy : [facility] Oral (given by mouth) Discont [place] 10/30/2023 30.0 [facility] acetaminoph en 325 mg oral tablet 3 tab(s), Oral, every 6 hr, PRN pain or fever, not to exceed 4000 mg/day, # 30 tab(s), 0 total refill(s ), Maintena nce, 3 tab(s) Oral every 6 hr,x7 days,PRN :pain or fever,In str:not to exceed 4000 mg/day, Pharmacy : [facility] Oral (given by mouth) Ordered 11/06/2023 30.0 0437A -D [facility] Debrox Earwax Removal Kit 6.5% otic solution 5 drop(s), Ear-Left , BID, as directed on package labeling , # 30 mL, 0 total refill(s ), Maintena nce, 5 drop(s) Ear-Left BID,Inst r:as directed on package labeling , Pharmacy : [facility] Left ear Complet ed 11/06/2023 30.0 0052A-A [facility] ibuprofen 600 mg oral tablet 1 tab(s), Oral, every 8 hr, not to exceed 3200 mg/day, # 30 tab(s), 0 total refill(s ), Acute, 02/08/24 5:00:00 AM CDT, 1 tab(s) Oral every 8 hr,Instr :not to exceed 3200 mg/day, Pharmacy : [facility] Oral (given by mouth) Complet ed 02/08/2024 30.0 0287C-A [facility] ibuprofen 800 mg oral tablet 1 tab(s), Oral, every 8 hr, PRN fever or mild pain, not to exceed 3200 mg/day with food or milk, # 30 tab(s), 0 total refill(s ), Maintena nce, 1 tab(s) Oral every 8 hr,x7 days,PRN :fever or mild pain,Ins tr:not to exceed 3200 mg/day; with food or milk, Pharmacy : [facility] Oral (given by mouth) Ordered 11/06/2023 30.0 0437A -D [facility] lidocaine 5% patch Topical, Daily, PRN pain (moderat e), 0 total refill(s ), Maintena nce Topica l (on the skin) Ordered 7C-A [facility] Lidoderm 5% topical film See Instruct ions, 1 to 3 patches topicall y to area of pain. Leave on for up to 12 hours within a 24 hour period (12 hours on, 12 hours off), # 15 patch(es ), 0 total refill(s ), Maintena nce, 1 to 3 patches topicall y to area of pain. Leave on for up to 12 hours within a 24 hour period (12 hours on, 12 hours off), Pharmacy : [facility] Ordered 15.0 0437A-D [facility] methocarbam ol 500 mg oral tablet tab(s), Oral, PRN pain (moderat e), 0 total refill(s ), Maintena nce Oral (given by mouth) Complet ed 11/06/2023 0287C-A [facility] Mobic 15 mg oral tablet 1 tab(s), Oral, Daily, # 90 tab(s), 0 total refill(s ), Maintena nce, 1 tab(s) Oral Daily, Pharmacy : [facility] Oral (given by mouth) Complet ed 11/06/2023 90.0 0287C-A [facility] Peridex 0.12% mucous membrane liquid 15 mL, Oral, As Directed , swish and spit; do not swallow. Use as directed after each meal and before bedtime for 10 days., # 473 mL, 0 total refill(s ), Maintena nce, 15 mL Oral As Directed ,Instr:s wish and spit; do not swallow. Use as directed after each meal and before bedtime for 10 days., Pharmacy : [facility] Oral (given by mouth) Ordered 473.0 0287C-A [facility] Allergies, Adverse Reactions, Alerts Combined list of allergies from Department of Defense and Veterans Affairs facilities. It does not include entries that were removed or entered in error. Substance Category Reaction Severity Reaction type Status Date Reported Comments Source No Known Allergies Drug allergy (disorder) active 08/12/2008 KYLE Arvizu Immunizations Combined list of available immunizations from the Department of Defense and Veterans Affairs facilities. Immunization Series Date Given Administered By Site Reaction Lot Number CVX Code Drug Family Services Manager Status Comments Source COVID-19, mRNA, LNP-S, PF, 100 mcg or 50 mcg dose 2020 [place], [employer] (MOD) Not Given COVID-19, mRNA, LNP-S, PF, 100 mcg or 50 mcg dose DoD SARS-COV-2 (COVID-19) vaccine, mRNA, spike protein, LNP, preservative free, 100 mcg or 50 mcg dose 0 2020 [employer] (MOD) complet ed SARS-COV- 2 (COVID-19 ) vaccine, mRNA, spike protein, LNP, preservat violette free, 100 mcg or 50 mcg dose DoD COVID-19, mRNA, LNP-S, PF, 100 mcg or 50 mcg dose 2020 [place], [employer] (MOD) Not Given COVID-19, mRNA, LNP-S, PF, 100 mcg or 50 mcg dose DoD SARS-COV-2 (COVID-19) vaccine, mRNA, spike protein, LNP, preservative free, 100 mcg or 50 mcg dose 0 2020 [employer] (MOD) complet ed SARS-COV- 2 (COVID-19 ) vaccine, mRNA, spike protein, LNP, preservat violette free, 100 mcg or 50 mcg dose DoD SARS-COV-2 (COVID-19) vaccine, mRNA, spike protein, LNP, preservative free, 100 mcg or 50 mcg dose 0 2020 207 () Not Given SARS-COV- 2 (COVID-19 ) vaccine, mRNA, spike protein, LNP, preservat violette free, 100 mcg or 50 mcg dose DoD Influenza, injectable, quadrivalent, preservative free 1 2019 [id number] 150 Seqirus (SEQ) complet ed Influenza , injectabl e, quadrival ent, preservat violette free DoD influenza, injectable, quadrivalent- pf 2019 Cristian shelton Arm [id number] 150 Seqirus complet ed influenza , injectabl e, quadrival ent-pf 04/14/20 Given Ambulat ory Pharmac y Influenza, injectable, quadrivalent, preservative free 1 2019 MANJINDER RENTERIA [id number] 150 Seqirus (SEQ) complet ed Influenza , injectabl e, quadrival ent, preservat violette free DoD Td (adult)-PF 2019 [id number] 113 sanofi pasteur complet ed Td (adult)-P F 12/18/19 Given Ambulat ory Pharmac y tetanus-dipht h toxoids (Td) adult/adol 2019 zzRig ht Arm [id number] 09 sanofi pasteur complet ed tetanus-d iphth toxoids (Td) adult/ado l 12/18/19 Given Ambulat ory Pharmac y tetanus and diphtheria toxoids, adsorbed, preservative free, for adult use (2 Lf of tetanus toxoid and 2 Lf of diphtheria toxoid) 2019 MOLLY RIVERA E [id number] 09 Sanofi Pasteur (PMC) complet ed tetanus and diphtheri a toxoids, adsorbed, preservat violette free, for adult use (2 Lf of tetanus toxoid and 2 Lf of diphtheri a toxoid) DoD tetanus and diphtheria toxoids, adsorbed, preservative free, for adult use (5 Lf of tetanus toxoid and 2 Lf of diphtheria toxoid) 1 2019 [id number] 113 Sanofi Pasteur (PMC) complet ed tetanus and diphtheri a toxoids, adsorbed, preservat violette free, for adult use (5 Lf of tetanus toxoid and 2 Lf of diphtheri a toxoid) DoD influenza, injectable, quadrivalent- pf 2018 [id number] 150 GlaxoSmithKli ne complet ed influenza , injectabl e, quadrival ent-pf 01/07/19 Given Ambulat ory Pharmac y Influenza, injectable, quadrivalent, preservative free 11 2018 [id number] 150 [facility] Influenza , injectabl e, quadrival ent, preservat violette free DoD poliovirus vaccine, inactivated 2016 [id number] 10 sanofi pasteur complet ed polioviru s vaccine, inactivat ed 08/21/17 Given Ambulat ory Pharmac y poliovirus vaccine, inactivated 2 2016 [id number] 10 Sanofi Pasteur (PMC) complet ed polioviru s vaccine, inactivat ed DoD Influenza, inj, MDCK, quadrivalent- pf 2016 [id number] 171 Seqirus complet ed Influenza , inj, MDCK, quadrival ent-pf 08/15/17 Given Ambulat ory Pharmac y Influenza, injectable, Madin [place] Canine Kidney, preservative free, quadrivalent 1 2016 [id number] 171 Seqirus (SEQ) comple t ed Influenza , injectabl e, Madin Amina Canine Kidney, preservat violette free, quadrival ent DoD meningococcal A,C,Y,W-135 (MCV4P) 2016 [id number] 114 sanofi pasteur complet ed meningoco ccal A,C,Y,W-1 35 (MCV4P) 06/03/17 Given Ambulat ory Pharmac y typhoid Vi capsular polysaccharid e vac 2016 [id number] 101 sanofi pasteur complet ed typhoid Vi capsular polysacch aride vac 06/03/17 Given Ambulat ory Pharmac y yellow fever vaccine 2016 [id number] 37 sanofi pasteur complet ed yellow fever vaccine 06/03/17 Given Ambulat ory Pharmac y yellow fever vaccine 1 2016 [id number] 37 Sanofi Pasteur (PMC) complet ed yellow fever vaccine DoD typhoid Vi capsular polysaccharid e vaccine 1 2016 [id number] 101 Sanofi Pasteur (PMC) complet ed typhoid Vi capsular polysacch aride vaccine DoD meningococcal polysaccharid e (groups A, C, Y and W-135) diphtheria toxoid conjugate vaccine (MCV4P) 2 2016 [id number] 114 Sanofi Pasteur (PMC) complet ed meningoco ccal polysacch aride (groups A, C, Y and W-135) diphtheri a toxoid conjugate vaccine (MCV4P) DoD mumps virus vaccine 0 2016 07 () Not Given mumps virus vaccine DoD influenza, seasonal, injectable 2016 [id number] 141 ID Biomedical comple t ed influenza , seasonal, injectabl e 04/15/17 Given Ambulat ory Pharmac y Influenza, seasonal, injectable 9 2016 [id number] 141 (IDB) complet ed Influenza , seasonal, injectabl e DoD influenza, seasonal, injectable-pf 2015 [id number] 140 AnaphoreKli ne complet ed influenza , seasonal, injectabl e-pf 12/14/15 Given Ambulat ory Pharmac y Influenza, seasonal, injectable, preservative free 8 2015 [id number] 140 [employer] (SKB) complet ed Influenza , seasonal, injectabl e, preservat violette free DoD influenza, seasonal, injectable 2013 [id number] 141 ID Biomedical comple t ed influenza , seasonal, injectabl e 09/24/14 Given Ambulat ory Pharmac y Influenza, seasonal, injectable 7 2013 [id number] 141 (IDB) complet ed Influenza , seasonal, injectabl e DoD influenza, seasonal, injectable 2012 [id number] 141 sanofi pasteur complet ed influenza , seasonal, injectabl e 10/30/13 Given Ambulat ory Pharmac y Influenza, seasonal, injectable 6 2012 [id number] 141 Sanofi Pasteur (PMC) complet ed Influenza , seasonal, injectabl e DoD influenza, seasonal, injectable-pf 2011 [id number] 140 CSL Behring complet ed influenza , seasonal, injectabl e-pf 09/08/12 Given Ambulat ory Pharmac y Influenza, seasonal, injectable, preservative free 5 2011 [id number] 140 CSL [employer]ies[employer] Inc. (CSL) complet ed Influenza , seasonal, injectabl e, preservat violette free DoD influenza, seasonal, injectable-pf 2010 [id number] 140 sanofi pasteur complet ed influenza , seasonal, injectabl e-pf 11/08/11 Given Ambulat ory Pharmac y Influenza, seasonal, injectable, preservative free 4 2010 [id number] 140 Sanofi Pasteur (PMC) complet ed Influenza , seasonal, injectabl e, preservat violette free DoD influenza virus vaccine, live 2009 [id number] 111 Medimmune Inc comple t ed influenza virus vaccine, live 11/09/10 Given Ambulat ory Pharmac y influenza virus vaccine, live, attenuated, for intranasal use 1 2009 [id number] 111 MedImmune, Inc. (MED) complet ed influenza virus vaccine, live, attenuate d, for intranasa l use [facility] Novel influenza-H1N 1-09, injectable 2009 [id number] 1 127 Novartis Pharmaceutica complet ed Novel influenza -B6H7-46, injectabl e 12/22/09 Given Ambulat ory Pharmac y Novel influenza-H1N 1-09, injectable 1 2009 [id number] 1 127 Novartis Pharmaceutica l Madonna. (NOV) complet ed Novel influenza -X8H7-24, injectabl e DoD influenza virus vaccine, live 2008 [id number] 111 [employer] Inc comple t ed influenza virus vaccine, live 08/24/09 Given Ambulat ory Pharmac y influenza virus vaccine, live, attenuated, for intranasal use 1 2008 [id number] 111 [employer] Inc. (MED) complet ed influenza virus vaccine, live, attenuate d, for intranasa l use DoD hepatitis A adult vaccine 2008 [id number] [id number] 52 GlaxoSmithKli ne complet ed hepatitis A adult vaccine 04/19/09 Given Ambulat ory Pharmac y hepatitis A vaccine, adult dosage 2 2008 [id number] 5AA 52 [facility] hepatitis A vaccine, adult dosage DoD influenza virus vaccine, live 2007 [id number] 111 [facility] t ed influenza virus vaccine, live 09/02/08 Given Ambulat ory Pharmac y influenza virus vaccine, live, attenuated, for intranasal use 1 2007 [id number] 111 [employer] Inc. (MED) complet ed influenza virus vaccine, live, attenuate d, for intranasa l use DoD tuberculin purified protein derivative 2007 [id number] 96 sanofi pasteur complet ed tuberculi n purified protein derivativ e 08/13/08 Given Ambulat ory Pharmac y poliovirus vaccine, inactivated 2007 [id number] 10 sanofi pasteur complet ed polioviru s vaccine, inactivat ed 08/12/08 Given Ambulat ory Pharmac y hepatitis A adult vaccine 2007 [id number] 2AA 52 GlaxoSmithKli ne complet ed hepatitis A adult vaccine 08/12/08 Given Ambulat ory Pharmac y poliovirus vaccine, inactivated 1 2007 [id number] 10 Sanofi Pasteur (PMC) complet ed polioviru s vaccine, inactivat ed DoD hepatitis A vaccine, adult dosage 1 2007 [id number] 2AA 52 [facility] hepatitis A vaccine, adult dosage DoD tetanus, diphtheria, acellular pertu is 2007 [id number] 115 sanofi pasteur complet ed tetanus, diphtheri a, acellular pertussis 05/05/08 Given Ambulat ory Pharmac y meningococcal A,C,Y,W-135 (MCV4P) 2007 [id number] 114 sanofi pasteur complet ed meningoco ccal A,C,Y,W-1 35 (MCV4P) 05/05/08 Given Ambulat ory Pharmac y meningococcal polysaccharid e (groups A, C, Y and W-135) diphtheria toxoid conjugate vaccine (MCV4P) 1 2007 [id number] 114 Sanofi Pasteur (PMC) complet ed meningoco ccal polysacch aride (groups A, C, Y and W-135) diphtheri a toxoid conjugate vaccine (MCV4P) DoD tetanus toxoid, reduced diphtheria toxoid, and acellular pertu is vaccine, adsorbed 1 2007 [id number] 115 Sanofi Pasteur (PMC) complet ed tetanus toxoid, reduced diphtheri a toxoid, and acellular pertussis vaccine, adsorbed DoD measles, mumps and rubella virus vaccine 1 2007 03 () Not Given measles, mumps and rubella virus vaccine DoD varicella virus vaccine 1 2007 21 () Not Given varicella virus vaccine DoD hepatitis B vaccine, unspecified formulation 1 2007 45 () Not Given hepatitis B vaccine, unspecifi ed formulati on DoD Results Combined list of recent chemistry, hematology and other laboratory results from Department of Defense and Veterans Affairs, ranging from 15 months to all on record, depending upon the facility. Order Name Results Value Reference Range Date Interpretation Specimen Comments Source Miscella neous Sendouts Misc Result.LC SEE PDF REPORT 10/26 [facility]acy Miscella neous Sendouts Req Order?.LC [id number] 10/26 [facility] Miscella neous Sendouts Misc Specimen Source? SNP Microarr ay 10/26 [facility] Miscella neous Sendouts Repository Sample.EPI RECEIVED 10/26 Result Comment: INTERPRETAT ION(S): Performed by: [facility] Bldg [id number] [place] [address] [place] [address] [facility] Infectio us Disease HIV-1/O/2. EPI NON-REAC TIVE 10/26 Result Comment: INTERPRETAT ION(S): This method is a screening procedure for the detection of HIV p24 Antigen and Antibodies to HIV-1, including Group O, and/or HIV-2. NON-REACTIV E: HIV-1 antigen and HIV-1 / HIV-2 antibodies were not detected. No laboratory evidence of HIV infection. A negative test result does not exclude the possibility of exposure to or infection with HIV. HIV antibodies and/or p24 antigen may be undetectabl e in some stages of the infection and in some clinical conditions. If acute HIV infection is suspected, consider submitting another specimen to a reference laboratory for HIV-1 RNA. SCREEN REACTIVE - CONFIRMATIO N TO FOLLOW: Possible presence of HIV-1 antibodies, HIV-2 antibodies and/or HIV-1 p24 antigen. Specimen will reflex to the confirmatio n testing that fulfills the Center for Disease Control and Prevention' s HIV diagnostic algorithm. Refer to [facility] Lab Guide for additional information : [email or web address] x Testing performed by Caio butler. Performed by: [facility] [address]ldg [address] [place] [phone] [facility] Vital Signs Combined list of inpatient and outpatient Vital Signs from Department of Defense and Veterans Affairs, ranging from 12 months to all on record, depending upon the facility. Vital Sign Value Date Comments Source Temperature Oral 37Cel 10/30/2023 21:47:00 Ambulatory Pharmacy Systolic Blood Pressure 144mm[Hg] 10/30/2023 21:47:00 Ambulatory Pharmacy Diastolic Blood Pressure 87mm[Hg] 10/30/2023 21:47:00 Ambulatory Pharmacy Peripheral Pulse Rate 56bpm 10/30/2023 21:47:00 Ambulatory Pharmacy Respiratory Rate 16br/min 10/30/2023 21:47:00 Ambulatory Pharmacy Temperature Oral 36.8Cel 06/23/2022 00:29:00 Ambulatory Pharmacy Systolic Blood Pressure 127mm[Hg] 06/23/2022 00:29:00 Ambulatory Pharmacy Diastolic Blood Pressure 80mm[Hg] 06/23/2022 00:29:00 Ambulatory Pharmacy Peripheral Pulse Rate 73bpm 06/23/2022 00:29:00 Ambulatory Pharmacy Respiratory Rate 18br/min 06/23/2022 00:29:00 Ambulatory Pharmacy Encounters Combined list of: 1) Encounters from Department of Veterans Affairs facilities going back up to thelast 18 months. 2) Encounters from the Department of Defense facilities going back up to 280 months. Location Location Details Encounter Type Encounter Number Reason For Visit Attending Provider ADM Date DC Date Status Disposition Source [facility](Opt ometry) OUTPATIENT [id number] color vision IONA ORTIZ 12/23 Released w/o Limitations [facility](O ptometr y) [facility](Aer ospace Medicine) OUTPATIENT [id number] COMMISS KYRIE BYERS 08/29 Released w/o Limitations [facility](A erospac e Medicin e) [facility](Opt ometry) OUTPATIENT [id number] comm. physica l -refrac tiIONA Ledbetter 09/26 Released w/o Limitations [facility](O ptometr y) [address] [facility]Opt [facility]) OUTPATIENT [id number] exam KENDY RODAS 06/10 Released w/o Limitations [address] [facility](O ptometr y Clinic) [address] [facility] amanda Medicine Clinic Team B) OUTPATIENT [id number] f/u on left ADAM Ruiz 07/28 Released w/o Limitations [address] [facility](F amily Medicin e Clinic Team B) [address] [facility] amanda Medicine Clinic Team B) OUTPATIENT [id number] walk in bp OLGA ALDRIDGE 08/02 [facility] Limitations [facility] [facility] [address] [facility](Fam amanda Practice Clinic) OUTPATIENT [id number] Walk in bp check # 2 BONILLA ALFORD 08/03 Released w/o Limitations [address] [facility](F amily Practic e Clinic) [address] [facility](Phy sical Therapy) OUTPATIENT [id number] (L) GIAN Wild 08/05 Released w/o Limitations [address] [facility](P hysical Therapy ) [employer](Phy sical Therapy) OUTPATIENT [id number] Impingm ent syndrom e. JASMIN HINSON 08/06 Released w/o Limitations [employer](P hysical Therapy ) [employer](All ergy Clinic) OUTPATIENT [id number] Immuniz ation CHANTHABLUIS RY, JENNIK E 08/12 Released w/o Limitations [employer](A llergy Clinic) [employer](Phy sical Therapy) OUTPATIENT [id number] JASMIN HINSON 08/13 Released w/o Limitations [employer](P hysical Therapy ) [employer](Phy sical Therapy) OUTPATIENT [id number] NIGEL SANCHEZ 08/18 Released w/o Limitations [employer](P hysical Therapy ) [employer](Phy sical Therapy) OUTPATIENT [id number] NIGEL SANCHEZ 08/20 Released w/o Limitations [employer](P hysical Therapy ) [employer](Phy sical Therapy) OUTPATIENT [id number] SAMREEN GALLAGHER 08/25 Released w/o Limitations [employer](P hysical Therapy ) [employer] amanda Medicine Clinic Team B) OUTPATIENT [id number] f/u EMILY Zhu 09/02 Released w/o Limitations [employer](F amily Medicin e Clinic Team B) [employer]) OUTPATIENT [id number] RADHA LI 09/08 Released w/o Limitations [employer](F amily [facility]- [place] [facility]) [employer](Phy sical Therapy) OUTPATIENT [id number] JASMIN HINSON 09/08 Released w/o Limitations [employer](P hysical Therapy ) [employer](Phy sical Therapy) OUTPATIENT [id number] NIGEL SANCHEZ 09/22 Released w/o Limitations [facility] [address] [facility](P hysical Therapy ) [facility] [address] [facility](All ergy Clinic) OUTPATIENT [id number] immuniz HANNA Kang Gerald 10/04 Released w/o Limitations [employer] [address] [facility](A llergy Clinic) [facility] [address] [facility](Phy sical Therapy) OUTPATIENT [id number] f/u GIAN Wild 10/18 Released w/o Limitations [employer] [address] [facility](P hysical Therapy ) [address] [facility]) OUTPATIENT [id number] [facility] ARTIE KANG 10/28 Released w/o Limitations [facility] [address] [facility]) [address] [facility] Medicine Clinic Team B) OUTPATIENT [id number] PAIN & SWELLIN G IN LEFT KNEE. KYRIE MARIANO 03/24 Released w/o Limitations [facility] [address] [facility]) [address] [facility]) OUTPATIENT [id number] GLORIA SMITH 12/07 Released w/o Limitations [place] [address] [facility]) [place] [address] [employer] [facility] Medicine [facility] Team B) OUTPATIENT [id number] pt states [place] KYRIE MARIANO 01/29 Released w/o Limitations [place] [address] [facility]) [address] [employer] [facility]) OUTPATIENT [id number] GIOVANNI GARCIA 02/12 Released w/o Limitations [place] [address] [employer]([facility]) [facility] [address] [facility] Medicine Clinic) OUTPATIENT [id number] Notes Entered by: MORTEZA MABRY 13 Feb 2012 1216 ------- ------- ------- ------- -- PCS RONEY MABRY 02/12 Released w/o Limitations [employer](F light Medicin e Clinic) [employer]([facility]) OUTPATIENT [id number] Notes Entered by: WILLIAM ZARATE 05 May 2013 0513 ------- ------- ------- ------- -- PHA/Dep loyment WILLIAM ZARATE 05/05 Released w/o Limitations [employer]([facility]) [employer]([facility] [employer]) OUTPATIENT [id number] ankle injury ELDER Rey 05/05 Released w/o Limitations [employer]([facility] Marybeth CUSTODIAL Blue) [employer] [facility]UST[employer] Blue) TELE CONSULT [id number] Notes Entered by: ELDER Rey 06 May 2013 1340 ------- ------- ------- ------- -- appt to discuss x-ray results LOC DU 05/06 [employer]([facility] Marybeth CUSTODIAL Blue) [employer]([facility] Blue) OUTPATIENT [id number] f/u x-rays ELDER Rey 05/18 Released w/o Limitations [employer]([facility] Marybeth CUSTODIAL Blue) [employer]([facility] Orthoped[facility] Clinic) OUTPATIENT [id number] right ankle joint pain ABHILASH BRITTON 05/25 Released w/o Limitations [employer]( [facility]) [employer]([facility] [employer]UST[employer] Blue) OUTPATIENT [id number] pha face to face ELDER Rey 06/09 Released w/o Limitations [employer]([facility] Marybeth CUSTODIAL Blue) [employer]([facility] Optometry Clinic) OUTPATIENT [id number] eye exam BEHZAD ROWAN 07/06 Released w/o Limitations [employer]([facility]) [employer]([facility]) OUTPATIENT [id number] Notes Entered by: ME LILIANA OJEDA 19 Oct 2013 1630 ------- ------- ------- ------- -- MEDICAL RECORD REVIEW- ABEL MOTA 10/19 Released w/o Limitations [employer]([facility]) [employer]([facility] Blue) OUTPATIENT [id number] back pain OELDER U 12/29 Released w/o Limitations [employer]([facility]) [employer]([facility]) OUTPATIENT [id number] 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 /#[phone]/no c ROBYN LEHMAN 03/12 Released w/o Limitations [employer]([facility]) [employer](Fam amanda Med Cl Team E Non-Ad) TELE CONSULT [id number] Notes Entered by: Haley RIVAS 15 Mar 2014 1304 ------- ------- ------- ------- -- Needs NICHOLAS Batres 03/15 [employer](F amily Med Cl Team E Non-Ad) [employer]([facility]) OUTPATIENT [id number] SOS:LOUISA Paul 03/16 Released with Work/Duty Limitations [employer]([facility]) [employer]([facility]) TELE CONSULT [id number] Notes Entered by: Gerald FINCH 19 Mar 2014 1506 ------- ------- ------- ------- -- Request ing nurse call/MR Storey NICHOLAS MORRISON 03/19 [employer]([facility]) [employer]([place] [facility]) OUTPATIENT [id number] NICHOLAS REEVES 03/24 Released w/o Limitations [employer](M ax Physica l Therapy Clinic) [employer]([facility] Blue) OUTPATIENT [id number] right knee pain O, ELDER U 04/27 Released w/o Limitations [employer](Z [facility] Blue) [employer]([facility]ometry [facility]) OUTPATIENT [id number] REE/Strange s not like current Rx MANJINDER BRADY 05/12 Released w/o Limitations [employer]([facility] Optomet ry Clinic) [employer]([facility] White) OUTPATIENT [id number] Notes Entered by: MANFRED WEN 29 Jun 2014 0943 ------- ------- ------- ------- -- PHA/DEP MAXIMO HAIR 06/29 Released w/o Limitations [employer]([facility]) [employer]([facility] Blue) OUTPATIENT [id number] cold sx O, JIN U 11/15 Released w/o Limitations [employer]([facility] Blue) [employer]([facility] Blue) OUTPATIENT [id number] request ing strep test HARLAN AMIN 02/16 Released w/o Limitations [employer]([facility] Blue) [employer]([facility] Blue) OUTPATIENT [id number] stomach pain/na usea O, ELDER U 02/17 Released w/o Limitations [employer]([facility] Blue) [employer]([facility] White) TELE CONSULT [id number] Notes Entered by: RICHY AMIN 18 Feb 2015 1122 ------- ------- ------- ------- -- throat culture VALDO NEFF 02/18 [employer]([facility] White) [employer]([facility] Red) OUTPATIENT [id number] strep test JYOTHI FAGAN 04/06 Released w/o Limitations [employer]([facility] Red) [employer]([facility] Blue) OUTPATIENT [id number] f/u strep-n ot better O, JIN U 04/27 Released w/o Limitations [employer](L ak [facility] Blue) [employer]([facility] Blue) OUTPATIENT [id number] right leg pain, worseni ELDER Minor U 05/24 Released w/o Limitations [employer](L ak C Blue) [employer]([facility] Blue) OUTPATIENT [id number] Notes Entered by: GAEL VALERO 26 May 2015 1519 ------- ------- ------- ------- -- PHA/PCS DARIUS HER 05/26 Released w/o Limitations [employer](L ak [facility] Blue) [employer](Lak In and Out Processin g) TELE CONSULT [id number] Notes Entered by: CIERRA SANCHEZ 02 Jun 2015 1616 ------- ------- ------- ------- -- Right HARLAN Castillo 06/02 [employer](L ak In and Out Process ing) [employer]([facility] C In and Out Processin g) TELE CONSULT [id number] Notes Entered by: KIMO KEARNS 15 Jun 2015 1001 ------- ------- ------- ------- -- ACG rub review KANNAN SOLIS 06/15 Other Not Elsewhere Classified [employer](W PMC In and Out Process ing) [facility](Fam amanda Medicine Team E) OUTPATIENT [id number] sore throat, exposed to strep x 3 days BEREKET COCHRAN 02/16 Released w/o Limitations [employer](F amily Medicin e Team E) [facility] [employer](Opt ometry (Area B Satellite )) OUTPATIENT [id number] Routine eye exam ALTHEA REYNOSO 05/01 Released w/o Limitations [facility](O ptometr y (Area B Satelli te)) [facility] OUTPATIENT [id number] Pas entered the order SWAPNIL GARRISON 06/11 Released w/o Limitations [employer](C hiropra ctic Clinic) [employer]([facility] ropractic Clinic) OUTPATIENT [id number] SWAPNIL GARRISON Gerald 06/18 Released w/o Limitations [employer](C hiropra ctic Clinic) [facility] ropractic Clinic) OUTPATIENT [id number] SWAPNIL GARRISON Gerald 06/25 Released w/o Limitations [employer](C hiropra ctic Clinic) [facility] ropractic Clinic) OUTPATIENT [id number] SWAPNIL GARRISON 07/09 Released w/o Limitations [employer](C hiropra ctic Clinic) [facility] Medical [facility] ropractic Clinic) OUTPATIENT [id number] SWAPNIL GARRISON 07/17 Released w/o Limitations [employer](C hiropra ctic Clinic) [facility] Medical [facility] OUTPATIENT [id number] SWAPNIL GARRISON Gerald 11/23 Released w/o Limitations [employer](C hiropra ctic Clinic) [facility](Fam amanda Medicine Team E) OUTPATIENT [id number] Discuss referra l to HALEY Lentz 02/18 Released w/o Limitations [employer](F amily Medicin e Team E) [facility] [employer](Bra ce Shop) OUTPATIENT [id number] NEVILLE PRICE 02/21 Released w/o Limitations [employer](B race [employer]) [facility](Bas e Operation al Medicine Cell) OUTPATIENT [id number] Notes Entered by: MANJINDER MOHAMUD 25 Feb 2017 0835 ------- ------- ------- ------- -- Tri Service PHA HALEY BURKETT E 02/25 Released w/o Limitations [employer](B ase Operati onal Medicin e Cell) [facility](Phy sical Therapy) OUTPATIENT [id number] Flat foot [pes planus] (acquir ed), unspeci fied foot EMILY GOLDBERG 02/28 Released w/o Limitations [facility](P hysical Therapy ) [facility](Phy sical Therapy) OUTPATIENT [id number] EMILY GOLDBERG 03/28 Released w/o Limitations [facility](P hysical Therapy ) [facility] amanda Medicine Team E) TELE CONSULT [id number] Notes Entered by: Haley SENIOR 22 May 2017 0931 ------- ------- ------- ------- -- No FTR appt - Form 600 review SWAPNIL PETTIT 05/22 Referred for Appointment [facility](F amily Medicin e Team E) [facility](Dep [facility] Health Assessmen ts) OUTPATIENT [id number] critical access hospital 1 JACK COLLAZO 05/22 Released w/o Limitations [facility] [employer](D eployme Health Assessm ents) [facility] TELE CONSULT [id number] Notes Entered by: MARCELIAN MCHUGH 24 May 2017 1435 ------- ------- ------- ------- -- Referra l Request - Vasecto my DE HALEY ARENAS 05/24 [facility](F amily Medicin e Team E) [facility](Uro logy) OUTPATIENT [id number] Encount er for CLARENCE Chow 05/31 Released w/o Limitations [facility](U rology) [facility](Prk Surgery) TELE CONSULT [id number] Notes Entered by: LEANDRO BEAN 07 Jun 2017 1532 ------- ------- ------- ------- -- Second Opinion LEANDRO Agarwal 06/07 [facility](P rk Surgery ) [facility] amanda Medicine Team E) TELE CONSULT [id number] Notes Entered by: Gerald HILTON 28 Jun 2017 1037 ------- ------- ------- ------- -- ER f/up - need RASHID - 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 - request call back RASHIDFreddie BRIDGESLETICIA ROGERS Aristeo 06/28 Referred for Appointment [facility](F amily Medicin e Team E) [facility] Medicine Team E) OUTPATIENT [id number] ER f/u for left leg pain DE LA DIAS, HALEY E 07/02 Released w/o Limitations [facility](F amily Medicin e Team E) [facility](Phy sical Therapy) OUTPATIENT [id number] Pain in left knee EMILY GOLDBERG 07/04 Released w/o Limitations [facility](P hysical Therapy ) [facility](Phy sical Therapy) OUTPATIENT [id number] KASSIE WAGGONER 07/08 Released w/o Limitations [facility](P hysical Therapy ) [facility](Phy sical Therapy) OUTPATIENT [id number] KASSIE WAGGONER 07/11 Released w/o Limitations [facility](P hysical Therapy ) [facility] Medicine Team E) TELE CONSULT [id number] Notes Entered by: CHANTELLE FRANZ 17 Jul 2017 1142 ------- ------- ------- ------- -- No Ftr's Deployi ng/MRI on 13Sept leaving 29Sept YESICA NAVARRETEBILLY 07/17 Referred for Appointment [employer](F amily Medicin e Team E) [facility] Medicine Team E) OUTPATIENT [id number] f/u MRI results DE LA DIAS, HALEY E 08/05 Released w/o Limitations [facility](F amily Medicin e Team E) [facility] Group([facility] Assessmen ts) TELE CONSULT [id number] Notes Entered by: JACK COLLAZO 12 Aug 2017 1408 ------- ------- ------- ------- -- Malaria prophyl axis JACK COLLAZO 08/12 [facility] Group(D eployme nt Health Assessm ents) [facility] amanda Medicine Team E) TELE CONSULT [id number] Notes Entered by: HALEY BURKETT E 13 Aug 2017 0736 ------- ------- ------- ------- -- Ortho consult DE HALEY ARENAS E 08/13 [facility](F amily Medicin e Team E) [facility] amanda Medicine Team E) TELE CONSULT [id number] Notes Entered by: JACK ESCOBEDO 13 Aug 2017 1314 ------- ------- ------- ------- -- referra LETICIA Payan 08/13 Referred for Appointment [facility](F amily Medicin e Team E) [facility] Group(Chi ropractic Clinic) OUTPATIENT [id number] SWAPNIL GARRISON 08/14 Released w/o Limitations [facility] Group(C hiropra ctic Clinic) [facility](Phy sical Therapy) OUTPATIENT [id number] Myalgia DEMETRIUS FELIX 08/21 Released w/o Limitations [facility](P hysical Therapy ) [facility](Dep loyment Health Assessmen ts) OUTPATIENT [id number] Notes Entered by: JACK COLLAZO 08 Jan 2018 1106 ------- ------- ------- ------- -- SHAWN 2 JACK COLLAZO 01/08 Released w/o Limitations [facility](D eployme nt Health Assessm ents) [facility](Dep loyment Health Assessmen ts) TELE CONSULT [id number] Notes Entered by: JACK COLLAZO 16 Jan 2018 1057 ------- ------- ------- ------- -- X-ray results JACK COLLAZO 01/16 [facility](D eployme nt Health Assessm ents) [facility] amanda Medicine Team E) TELE CONSULT [id number] Notes Entered by: PERRY AVILA 21 Jan 2018 1630 ------- ------- ------- ------- -- Right Foot X-ray Results Request DE LA HALEY DIAS E 01/21 [facility] Group(F amily Medicin e Team E) [facility] amanda Medicine Team E) OUTPATIENT [id number] right foot injury, x-ray results DE LA SHAUNNA DIASO E 01/27 Released w/o Limitations [facility](F amily Medicin e Team E) [facility] amanda Medicine Team E) TELE CONSULT [id number] Notes Entered by: PERRY AVILA 30 Jan 2018 1322 ------- ------- ------- ------- -- Right Foot X-ray Results /Profil e Update Request MANJINDER MASTERS 01/30 Other Not Elsewhere Classified [facility](F amily Medicin e Team E) [facility] OUTPATIENT [id number] Notes Entered by: DESTINEY AVILA 03 Jul 2018 1050 ------- ------- ------- ------- -- dha 3 JACK COLLAZO 07/03 Released w/o Limitations [facility](D eployme nt Health Assessm ents) [facility]( [employer]ac[employer]) OUTPATIENT [id number] sore throat, scratch y, body aches x 2days TYLER MONK 09/03 Released w/o Limitations [facility] [employer](F H Atlanti s) [facility]( [employer]) OUTPATIENT [id number] * ref to Physica l Therapy -left shouder TYLER MONK 09/09 Released w/o Limitations [facility](F H [place]) [address] [place] [address] Group(Occ upational Therapy) OUTPATIENT [id number] Pain in left shoulde r FARHANA MCKNIGHT 09/19 Released w/o Limitations [facility](O ccupati onal Therapy ) [facility](Occ upational Therapy) OUTPATIENT [id number] ROOPA SULLIVAN 09/23 Released w/o Limitations [facility](O ccupati onal Therapy ) Medical Group(Occ upational Therapy) OUTPATIENT [id number] ROOPA SULLIVAN 10/01 Released w/o Limitations [facility](O ccupati onal Therapy ) [facility] Medical Group(Occ upational Therapy) OUTPATIENT [id number] SAI JULIO CESAR N 10/08 Released w/o Limitations [facility] [employer](O ccupati onal Therapy ) [facility] Medical Group(FH [place]) OUTPATIENT [id number] * - discuss hormone level testing TYLER MONK 10/21 Released w/o Limitations [employer](F H Atlanti s) [facility] Medical Group(Bas e Operation al Medicine Cell) OUTPATIENT [id number] A JACK COLLAZO 10/22 Released w/o Limitations [facility] [employer](B ase Operati onal Medicin e Cell) [facility] Group(Occ upational Therapy) OUTPATIENT [id number] SAIPEYTONJULIO CESAR N 10/23 Released w/o Limitations [facility](O ccupati onal Therapy ) [facility] OUTPATIENT [id number] TRI SERVICE PHA NIKO CORDOVA 10/27 Released w/o Limitations [facility](F amily Medicin e Team F) Medical Group(Occ upational Therapy) OUTPATIENT [id number] ROOPA SULLIVAN 10/28 Released w/o Limitations [facility](O ccupati onal Therapy ) [facility] Group(Occ upational Therapy) OUTPATIENT [id number] DANE ARMSTRONG 11/04 Released w/o Limitations [facility] [employer](O ccupati onal Therapy ) [facility] Group(Occ upational Therapy) OUTPATIENT [id number] f/u ROXANNA FARHANA S 11/06 Released w/o Limitations [employer](O ccupati onal Therapy ) [facility] Group([facility] ropractic Clinic) OUTPATIENT [id number] SWAPNIL GARRISON 11/07 Released w/o Limitations [employer](C hiropra ctic Clinic) [facility] Medical Group(Occ upational Therapy) OUTPATIENT [id number] NATE, ROOPA C 12/08 Released w/o Limitations [facility] Group(O ccupati onal Therapy ) [facility] Group(Occ upational Therapy) OUTPATIENT [id number] NATEROOPA SAMUELS 12/10 Released w/o Limitations [facility] Group(O ccupati onal Therapy ) [facility] Group(Occ upational Therapy) OUTPATIENT [id number] ROOPA SULLIVAN 12/19 Released w/o Limitations [facility] Group(O ccupati onal Therapy ) [facility] Group(Occ upational Therapy) OUTPATIENT [id number] NATEROOPA SAMUELS 12/22 Released w/o Limitations [facility] Group(O ccupati onal Therapy ) [facility] Medical Group(Occ upational Therapy) OUTPATIENT [id number] ROOPA SULLIVAN 12/29 Released w/o Limitations [facility] Group(O ccupati onal Therapy ) [facility] Medical Group(Occ upational Therapy) OUTPATIENT [id number] ROOPA SULLIVAN 01/06 Released w/o Limitations [facility] Group(O ccupati onal Therapy ) [facility]) OUTPATIENT [id number] SWAPNIL GARRISON 04/24 Released w/o Limitations [facility] Medical Group(C hiropra ctic Clinic) [facility]) OUTPATIENT [id number] SWAPNIL GARRISON 05/05 Released w/o Limitations [facility] Group(C hiropra ctic Clinic) [facility](AM H [facility] [place] (Fam Prac Red FB)) OUTPATIENT [id number] referra l to radiolo gy for right foot and left hip LOC VILLANUEVA 08/25 Released w/o Limitations [facility]( [facility]H F01R [place] (Fam Prac Red FB)) [facility](Ph ys Therapy FB) OUTPATIENT [id number] Pain in left hip BARRY MORGAN 08/31 Released w/o Limitations [facility]( Phys Therapy FB) [facility](Ph ys Therapy FB) OUTPATIENT [id number] MARY RODRIGUEZ LILLIAN 09/01 Released w/o Limitations [facility]( Phys Therapy FB) [facility](Ph ys Therapy FB) OUTPATIENT [id number] CYNTHIA CAMPO 09/18 Released w/o Limitations [facility]( Phys Therapy FB) [facility](Ph ys Therapy FB) OUTPATIENT [id number] SABAMARY ELLEN 09/30 Released w/o Limitations [facility]( Phys Therapy FB) [facility](Ph ys Therapy FB) OUTPATIENT [id number] 5 week f/u BARRY MORGAN 10/13 Released w/o Limitations [facility]( Phys Therapy FB) [facility](Op erational Medicine MG) OUTPATIENT [id number] SHAWN 5/SAVANA Alberts, (cell) ROSALBA WHITFIELD 12/11 Released w/o Limitations [facility]( Operati onal Medicin e MG) [facility](Fa m Practice FB) OUTPATIENT [id number] Notes Entered by: MARY JANE MAURO 18 Dec 2019 0757 ------- ------- ------- ------- -- Immuniz MOLLY Plascencia 12/18 Released w/o Limitations [facility]( Fam Practic e FB) [facility](AM H F[facility]R [place] (Fam Prac Red FB)) TELE CONSULT [id number] Notes Entered by: LILLY PEARSON 13 Apr 2020 1603 ------- ------- ------- ------- -- Referra l Request by IZABELLA Albright 04/13 [facility]( AMH F01R [place] (Fam Prac Red FB)) [facility] F[facility]R [place] (Fam Prac Red FB)) OUTPATIENT [id number] vertual brian for referra melissa GARAYJACK Candido 04/14 Released w/o Limitations [facility]( [facility]R [place] (Fam Prac Red FB)) [facility](Al lergy Cl FB) OUTPATIENT [id number] jessica MILTON PEARSON Gerald 04/14 Released w/o Limitations [facility]( Allergy Cl FB) [facility](Ch iropracti c Cl Be) OUTPATIENT [id number] [place] [id number] katalina [email or web address] MANUEL SERRATO 04/22 Released w/o Limitations [facility]( Chiropr actic Cl Be) [facility](Ch iropracti c Cl Be) OUTPATIENT [id number] MANUEL SERRATO 05/06 Released w/o Limitations [facility]( Chiropr actic Cl Be) [facility]) OUTPATIENT [id number] KATTY KENNEDY 06/16 Released w/o Limitations [employer] [facility](M ax Chiropr actic Clinic) [facility]) OUTPATIENT [id number] routine /[id number] 04/ ROBERTA KOHLI 06/29 Released w/o Limitations [facility] [facility](M ax Optomet ry Clinic) [facility] Ch[facility]prac [facility]) OUTPATIENT [id number] f/u qw 2 wks q mthly KATTY KENNEDY 07/11 Released w/o Limitations [facility] [facility](M ax Chiropr actic Clinic) [facility] [facility] Pharm[facility]) OUTPATIENT [id number] Notes Entered by: CAROLA PAN 25 Jul 2020 0848 ------- ------- ------- ------- -- Sickle Cell Trait WILLIAM Zamora 07/25 Released w/o Limitations [facility] [facility](M ax Pharmac y Clinic) [facility]) OUTPATIENT [id number] Notes Entered by: ROBERTA KOHLI 08 Nov 2020 1122 ------- ------- ------- ------- -- Rx non-ada pt ROBERTA KOHLI 11/08 Released w/o Limitations [facility] [facility](M ax Optomet ry Clinic) [facility](Bas e Operation al Med Clinic) OUTPATIENT [id number] Notes Entered by: Charlene BURRELL 21 Dec 2020 1134 ------- ------- ------- ------- -- 422/ Med clr NIKKI YEBOAH 12/21 Released w/o Limitations [facility](B ase Operati onal Med Clinic) [facility]) OUTPATIENT [id number] Notes Entered by: NIKO MILTON 29 Mar 2021 0701 ------- ------- ------- ------- -- [facility] Record Review PHAQ/ ADRIANO MCNALLY 03/29 Released w/o Limitations [facility] [facility] ase Operati onal Med Clinic) [facility]) OUTPATIENT [id number] HC back px.pt rqst imaging .no tvl/ct. TASIA ROSALES 07/14 Released w/o Limitations [facility]) [facility] [place] TELE CONSULT [id number] Notes Entered by: ANGELLA OLIVAS 15 Aug 2021 1419 ------- ------- ------- ------- -- jenna/pro file/kendrick hwang/ LUIS DYER 08/16 Other Not Elsewhere Classified [facility] [place]( [facility] [id number]- C-[facility] [id number] Pain in left shoulde r SOFIE Alberts 02/10 Discharge Disposition: Home or Self Care [id number] F-C-15t h [facility] CKAM [id number]- C-15th [facility] AM Outpatient [id number] Pain in left leopoldoe peña SAM A 02/17 Discharge Disposition: Home or Self Care [id number] F-C-15t h [facility] CKAM 7379C-Isis coln [place] Outpatient [id number] Encount er for issue of other medical certifi ashley TREVIÑO ETHAN 07/17 Discharge Disposition: Home or Self Care [id number] 0310C-AF- C-66th [facility] [id number] TATUMMAHON EY 10/30 0310C-A F-C-66t h [facility] 0310C-AF- C-66th [facility] [id number] EMILY HEATON 10/30 Discharge Disposition: Home or Self Care 0310C-A F-C-66t h [facility] Procedures Combined list of: 1) Procedures from Department of Veterans Affairs facilities going back up to thelast 18 months, not all VA non-surgical procedures are included; 2) All procedures from the Department of Defense facilities. Procedure Procedure Type Code Date Perfomer Comments Sourc e WAIVER SERVICES; NOT OTHERWISE SPECIFIED (NOS) 07/17 [facility] HEPATITIS B VACCINE (HEPB), PEDIATRIC/ADOLESCE NT DOSAGE, 3 DOSE SCHEDULE, FOR INTRAMUSCULAR USE 07/14 DoD SUPP &MATERIAL (EXCEPT SPECTACLE),PROVID, THE PHYS/OTH QUALIFIED HEALTH RAIL FILLER OVER &ABOVE THOSE USUALLY INCLD W THE OFFICE VISIT/OTH SER RENDERED (LIST DRUG,TRAYS,SUPP,OR MATERIAL PROVID) 12/21 DoD CULTURE, BACTERIAL, DEFINITIVE; THROAT OR NOSE 12/16 [facility] OPHTHALMOSCOPY, EXTENDED, WITH RETINAL DRAWING (EG, FOR RETINAL DETACHMENT, MELANOMA), WITH MEDICAL DIAGNOSTIC EVALUATION; SUBSEQUENT 11/08 [facility] APPLICATION OF LONG LEG SPLINT (THIGH TO ANKLE OR TOES) 09/21 DoD PRESCRIPTION ORAL DRUG 04/08 DoD THERAPEUTIC PROCEDURE, 1 OR MORE AREAS, EACH 15 MINUTES; THERAPEUTIC EXERCISES TO DEVELOP STRENGTH AND ENDURANCE, RANGE OF MOTION AND FLEXIBILITY 04/24 DoD PSYCHIATRIC EVALUATION OF HOSPITAL RECORDS, OTHER PSYCHIATRIC REPORTS, PSYCHOMETRIC AND/OR PROJECTIVE TESTS, AND OTHER ACCUMULATED DATA FOR MEDICALDIAGNOSTIC PURPOSES 03/26 DoD THERAPEUTIC PROCEDURE, 1 OR MORE AREAS, EACH 15 MINUTES; THERAPEUTIC EXERCISES TO DEVELOP STRENGTH AND ENDURANCE, RANGE OF MOTION AND FLEXIBILITY 01/06 DoD MANUAL THERAPY TECHNIQUES (EG, MOBILIZATION/ MANIPULATION, MANUAL LYMPHATIC DRAINAGE, MANUAL TRACTION), 1 OR MORE REGIONS, EACH 15 MINUTES 12/29 DoD APPLICATION OF A MODALITY TO 1 OR MORE AREAS; HOT OR COLD PACKS 12/22 DoD APPLICATION OF A MODALITY TO 1 OR MORE AREAS; HOT OR COLD PACKS 12/19 DoD MANUAL THERAPY TECHNIQUES (EG, MOBILIZATION/ MANIPULATION, MANUAL LYMPHATIC DRAINAGE, MANUAL TRACTION), 1 OR MORE REGIONS, EACH 15 MINUTES 12/10 DoD APPLICATION OF A MODALITY TO 1 OR MORE AREAS; HOT OR COLD PACKS 12/08 DoD THERAPEUTIC ACTIVITIES, DIRECT (ONE-ON-ONE) PATIENT CONTACT (USE OF DYNAMIC ACTIVITIES TO IMPROVE FUNCTIONAL PERFORMANCE), EACH 15 MINUTES 11/07 [facility] RE-EVALUATION OF OCCUPATIONAL THERAPY ESTABLISHED PLAN OF CARE,REQ:ASSESS CHANGES IN PAT FUNCT/MED STATUS W REVISED PLAN OF CARE;TYPICALLY, 30 MINUTES ARE SPENT [id number] WITH THE PATIENT &/FAMILY 11/06 [facility] MANUAL THERAPY TECHNIQUES (EG, MOBILIZATION/ MANIPULATION, MANUAL LYMPHATIC DRAINAGE, MANUAL TRACTION), 1 OR MORE REGIONS, EACH 15 MINUTES 11/04 DoD THERAPEUTIC PROCEDURE, 1 OR MORE AREAS, EACH 15 MINUTES; THERAPEUTIC EXERCISES TO DEVELOP STRENGTH AND ENDURANCE, RANGE OF MOTION AND FLEXIBILITY 10/28 [facility] ADMINISTRATION OF PATIENT-FOCUSED HEALTH RISK ASSESSMENT INSTRUMENT (EG, HEALTH HAZARD APPRAISAL) WITH SCORING AND DOCUMENTATION, PER STANDARDIZED INSTRUMENT 10/28 [facility] MANUAL THERAPY TECHNIQUES (EG, MOBILIZATION/ MANIPULATION, MANUAL LYMPHATIC DRAINAGE, MANUAL TRACTION), 1 OR MORE REGIONS, EACH 15 MINUTES 10/23 DoD ONLINE ASSESS &MANAG SERV PROVIDE,A QUAL NONPHYS HCP TO AN ESTABLISHED PAT/GUARDIAN,NOT ORIGINAT FRM RELAT ASSESS &MANAG SERV PROVIDE W/IN THE PREV 7 DAYS,USE THE [employer] NETWORK 10/22 DoD ONLINE ASSESS &MANAG SERV PROVIDE,A QUAL NONPHYS HCP TO AN ESTABLISHED PAT/GUARDIAN,NOT ORIGINAT FRM RELAT ASSESS &MANAG SERV PROVIDE W/IN THE PREV 7 DAYS,USE THE [employer] NETWORK 10/21 DoD APPLICATION OF A MODALITY TO 1 OR MORE AREAS; HOT OR COLD PACKS 10/08 DoD MANUAL THERAPY TECHNIQUES (EG, MOBILIZATION/ MANIPULATION, MANUAL LYMPHATIC DRAINAGE, MANUAL TRACTION), 1 OR MORE REGIONS, EACH 15 MINUTES 10/01 DoD MANUAL THERAPY TECHNIQUES (EG, MOBILIZATION/ MANIPULATION, MANUAL LYMPHATIC DRAINAGE, MANUAL TRACTION), 1 OR MORE REGIONS, EACH 15 MINUTES 09/23 [facility] THERAPEUTIC PROCEDURE, 1 OR MORE AREAS, EACH 15 MINUTES; THERAPEUTIC EXERCISES TO DEVELOP STRENGTH AND ENDURANCE, RANGE OF MOTION AND FLEXIBILITY 09/19 DoD ONLINE ASSESS &MANAG SERV PROVIDE,A QUAL NONPHYS HCP TO AN ESTABLISHED PAT/GUARDIAN,NOT [facility] REL[facility] ASSESS &MANAG SERV PROVIDE W/IN THE PREV 7 DAYS,USE THE [employer] NETWORK 09/10 DoD ADMINISTRATION OF PATIENT-FOCUSED HEALTH RISK ASSESSMENT INSTRUMENT (EG, HEALTH HAZARD APPRAISAL) WITH SCORING AND DOCUMENTATION, PER STANDARDIZED INSTRUMENT 07/03 DoD TELE ASSESS & MGT SRV PROV QUAL NONPHYS HLTH CARE PRO TO EST PAT,PARENT,GUARD NOT ORIG REL ASSESS & MGT SRV PROV W/IN PREV 7 DAYS NOR LEAD ASSESS & MGT SRV/PX W/IN NXT 24 HR/SOON APT;5-10 MIN MED DIS 01/30 DoD TELE ASSESS & MGT SRV PROV QUAL NONPHYS HLTH CARE PRO TO EST PAT,PARENT,GUARD NOT ORIG REL ASSESS & MGT SRV PROV W/IN PREV 7 DAYS NOR LEAD ASSESS & MGT SRV/PX W/IN NXT 24 HR/SOON APT;5-10 MIN MED DIS 01/21 DoD ADMINISTRATION OF PATIENT-FOCUSED HEALTH RISK ASSESSMENT INSTRUMENT (EG, HEALTH HAZARD APPRAISAL) WITH SCORING AND DOCUMENTATION, PER STANDARDIZED INSTRUMENT 01/08 DoD GROUP PSYCHOTHERAPY (OTHER THAN OF A MULTIPLE-FAMILY GROUP) 01/07 DoD PHYSICAL OR MANIPULATIVE THERAPY PERFORMED FOR MAINTENANCE RATHER THAN HOAHAOISM 08/21 DoD CHIROPRACTIC MANIPULATIVE TREATMENT (CMT); SPINAL, 1-2 REGIONS 08/14 DoD TELE ASSESS & MGT SRV PROV QUAL NONPHYS HLTH CARE PRO TO EST PAT,PARENT,GUARD NOT ORIG REL ASSESS & MGT SRV PROV W/IN PREV 7 DAYS NOR LEAD ASSESS & MGT SRV/PX W/IN NXT 24 HR/SOON APT;5-10 MIN MED DIS 08/13 DoD TELE ASSESS & MGT SRV PROV QUAL NONPHYS HLTH CARE PRO TO EST PAT,PARENT,GUARD NOT ORIG REL ASSESS & MGT SRV PROV W/IN PREV 7 DAYS NOR LEAD ASSESS & MGT SRV/PX W/IN NXT 24 HR/SOON APT;5-10 MIN MED DIS 07/17 DoD APPLICATION OF A MODALITY TO 1 OR MORE AREAS; IONTOPHORESIS, EACH 15 MINUTES 07/11 DoD NEEDLE-FREE INJECTION DEVICE, EACH 07/08 DoD THERAPEUTIC PROCEDURE, 1 OR MORE AREAS, EACH 15 MINUTES; THERAPEUTIC EXERCISES TO DEVELOP STRENGTH AND ENDURANCE, RANGE OF MOTION AND FLEXIBILITY 07/04 DoD TELE ASSESS & MGT SRV PROV QUAL NONPHYS HLTH CARE PRO TO EST PAT,PARENT,GUARD NOT ORIG REL ASSESS & MGT SRV PROV W/IN PREV 7 DAYS NOR LEAD ASSESS & MGT SRV/PX W/IN NXT 24 HR/SOON APT;5-10 MIN MED DIS 06/28 DoD EDUCATION &TRAINING, PATIENT SELF-MGT QUALIFIED, NONPHYSICIAN HEALTH RAIL FILLER USING STANDARDIZED CURRICULUM, [id number] W THE PATIENT (COULD INCL CAREGIVER/FAMILY) EA 30 MIN; 5-8 PATIENTS 05/31 DoD TELE ASSESS & MGT SRV PROV QUAL NONPHYS HLTH CARE PRO TO EST PAT,PARENT,GUARD NOT ORIG REL ASSESS & MGT SRV PROV W/IN PREV 7 DAYS NOR LEAD ASSESS & MGT SRV/PX W/IN NXT 24 HR/SOON APT;5-10 MIN MED DIS 05/24 DoD ADMINISTRATION OF PATIENT-FOCUSED HEALTH RISK ASSESSMENT INSTRUMENT (EG, HEALTH HAZARD APPRAISAL) WITH SCORING AND DOCUMENTATION, PER STANDARDIZED INSTRUMENT 05/22 DoD NEUROPSYCHOLOGICAL TESTING (EG, [place] CARD SORTING TEST), ADMINISTERED BY A COMPUTER, WITH QUALIFIED HEALTH RAIL FILLER INTERPRETATION AND REPORT 05/22 DoD PSYCHIATRIC EVALUATION OF HOSPITAL RECORDS, OTHER PSYCHIATRIC REPORTS, PSYCHOMETRIC AND/OR PROJECTIVE TESTS, AND OTHER ACCUMULATED DATA FOR MEDICALDIAGNOSTIC PURPOSES 05/20 DoD MANUAL THERAPY TECHNIQUES (EG, MOBILIZATION/ MANIPULATION, MANUAL LYMPHATIC DRAINAGE, MANUAL TRACTION), 1 OR MORE REGIONS, EACH 15 MINUTES 03/28 DoD PHYSICAL THERAPY EVALUATION:LOW COMPLEXITY,REQ:HIS T W NO PERS FACT &/COMORB THAT IMPACT PLAN OF CARE;CLIN DECIS MAKING OF LOW COMPLEXITY,TYPICAL LY,20 MIN ARE SPENT [id number] W THE PATIENT &/FAMILY 02/28 [facility] ORTHOTIC(S) MANAGEMENT AND TRAINING (INCLUDING ASSESSMENT AND FITTING WHEN NOT OTHERWISE REPORTED),UPPER EXTREMITY(IES),LOW ER EXTREMITY(IES) AND/OR TRUNK,INITIAL ORTHOTIC(S) ENCOUNTER,EACH 15 MINUTES 02/21 [facility] CHIROPRACTIC MANIPULATIVE TREATMENT (CMT); SPINAL, 1-2 REGIONS 11/23 [facility] CHIROPRACTIC MANIPULATIVE TREATMENT (CMT); SPINAL, 1-2 REGIONS 07/17 DoD CHIROPRACTIC MANIPULATIVE TREATMENT (CMT); SPINAL, 1-2 REGIONS 07/09 [facility] CHIROPRACTIC MANIPULATIVE TREATMENT (CMT); SPINAL, 1-2 REGIONS 06/25 [facility] THERAPEUTIC PROCEDURE,1 OR MORE AREAS,EACH 15 MINUTES;NEUROMUSCU LAR REEDUCATION OF MOVEMENT,BALANCE,C OORDINATION,KINEST HETIC SENSE,POSTURE,AND/ OR PROPRIOCEPTION FOR SITTING AND/OR STANDING ACTIVITIES 06/18 DoD THERAPEUTIC PROCEDURE,1 OR MORE AREAS,EACH 15 MINUTES;NEUROMUSCU LAR REEDUCATION OF MOVEMENT,BALANCE,C OORDINATION,KINEST HETIC SENSE,POSTURE,AND/ OR PROPRIOCEPTION FOR SITTING AND/OR STANDING ACTIVITIES 06/11 [facility] DETERMINATION OF REFRACTIVE STATE 05/01 [facility] ADMINISTRATION OF PATIENT-FOCUSED HEALTH RISK ASSESSMENT INSTRUMENT (EG, HEALTH HAZARD APPRAISAL) WITH SCORING AND DOCUMENTATION, PER STANDARDIZED INSTRUMENT 03/29 [facility] ADMINISTRATION OF PATIENT-FOCUSED HEALTH RISK ASSESSMENT INSTRUMENT (EG, HEALTH HAZARD APPRAISAL) WITH SCORING AND DOCUMENTATION, PER STANDARDIZED INSTRUMENT 12/21 [facility] FITTING OF SPECTACLES, EXCEPT FOR APHAKIA; MONOFOCAL 11/08 [facility] THERAPEUTIC PROCEDURE, 1 OR MORE AREAS, EACH 15 MINUTES; THERAPEUTIC EXERCISES TO DEVELOP STRENGTH AND ENDURANCE, RANGE OF MOTION AND FLEXIBILITY 07/11 [facility] COMPUTERIZED CORNEAL TOPOGRAPHY, UNILATERAL OR BILATERAL, WITH INTERPRETATION AND REPORT 06/29 [facility] APPLICATION OF A MODALITY TO 1 OR MORE AREAS; HOT OR COLD PACKS 06/16 [facility] THERAPEUTIC PROCEDURE, 1 OR MORE AREAS, EACH 15 MINUTES; THERAPEUTIC EXERCISES TO DEVELOP STRENGTH AND ENDURANCE, RANGE OF MOTION AND FLEXIBILITY 03/24 [facility] COLOR VISION EXAMINATION, EXTENDED, EG, ANOMALOSCOPE OR EQUIVALENT 09/26 [facility] COLOR VISION EXAMINATION, EXTENDED, EG, ANOMALOSCOPE OR EQUIVALENT 12/23 [facility] OPHTHALMOLOGICAL SERVICES: MEDICAL EXAMINATION AND EVALUATION, WITH INITIATION OR CONTINUATION OF DIAGNOSTIC AND TREATMENT PROGRAM; INTERMEDIATE, ESTABLISHED PATIENT 08/11 [facility] SELF-CARE/HOME MANAGMENT TRAIN (EG,ACT OF DAILY LIVING (ADL) &COMPENSAT TRAIN,MEAL PREPARATION,SAFETY PROCS,AND INSTRUCT IN USE OF ASST TECHNOLOGY DEV/ADPT EQUIP) DIR ONE-ON-ONE CONT,EA 15 MINUTES 10/18 [facility] INFLUENZA VIRUS VACCINE, TRIVALENT (IIV3), SPLIT VIRUS, 0.5 ML DOSAGE, FOR INTRAMUSCULAR USE 10/04 [facility] MANUAL THERAPY TECHNIQUES (EG, MOBILIZATION/ MANIPULATION, MANUAL LYMPHATIC DRAINAGE, MANUAL TRACTION), 1 OR MORE REGIONS, EACH 15 MINUTES 09/22 [facility] MANUAL THERAPY TECHNIQUES (EG, MOBILIZATION/ MANIPULATION, MANUAL LYMPHATIC DRAINAGE, MANUAL TRACTION), 1 OR MORE REGIONS, EACH 15 MINUTES 09/08 [facility] THERAPEUTIC PROCEDURE, 1 OR MORE AREAS, EACH 15 MINUTES; THERAPEUTIC EXERCISES TO DEVELOP STRENGTH AND ENDURANCE, RANGE OF MOTION AND FLEXIBILITY 08/25 [facility] THERAPEUTIC PROCEDURE, 1 OR MORE AREAS, EACH 15 MINUTES; THERAPEUTIC EXERCISES TO DEVELOP STRENGTH AND ENDURANCE, RANGE OF MOTION AND FLEXIBILITY 08/20 [facility] APPLICATION OF A MODALITY TO 1 OR MORE AREAS; ULTRASOUND, EACH 15 MINUTES 08/18 [facility] APPLICATION OF A MODALITY TO 1 OR MORE AREAS; ULTRASOUND, EACH 15 MINUTES 08/13 [facility] HEPATITIS A VACCINE (HEPA), ADULT DOSAGE, FOR INTRAMUSCULAR USE 08/12 [facility] APPLICATION OF A MODALITY TO 1 OR MORE AREAS; ULTRASOUND, EACH 15 MINUTES 08/06 [facility] MANUAL THERAPY TECHNIQUES (EG, MOBILIZATION/ MANIPULATION, MANUAL LYMPHATIC DRAINAGE, MANUAL TRACTION), 1 OR MORE REGIONS, EACH 15 MINUTES 08/05 [facility] OPHTHALMIC ULTRASOUND, ECHOGRAPHY, DIAGNOSTIC; CORNEAL PACHYMETRY, UNILATERAL OR BILATERAL (DETERMINATION OF CORNEAL THICKNESS) 06/10 [facility] OPHTHALMOLOGICAL SERVICES: MEDICAL EXAMINATION AND EVALUATION, WITH INITIATION OR CONTINUATION OF DIAGNOSTIC AND TREATMENT PROGRAM; COMPREHENSIVE, ESTABLISHED PATIENT, 1 OR MORE VISITS 05/12 [facility] OPHTHALMIC ULTRASOUND, ECHOGRAPHY, DIAGNOSTIC; CORNEAL PACHYMETRY, UNILATERAL OR BILATERAL (DETERMINATION OF CORNEAL THICKNESS) 07/06 [facility] CHIROPRACTIC MANIPULATIVE TREATMENT (CMT); SPINAL, 3-4 REGIONS 05/06 [facility] CHIROPRACTIC MANIPULATIVE TREATMENT (CMT); SPINAL, 3-4 REGIONS 04/22 [facility] WAIVER SERVICES; NOT OTHERWISE SPECIFIED (NOS) 04/20 [facility] IMMUNIZATION ADMINISTRATION (INCLUDES PERCUTANEOUS, INTRADERMAL, SUBCUTANEOUS, OR INTRAMUSCULAR INJECTIONS); 1 VACCINE (SINGLE OR COMBINATION VACCINE/TOXOID) 04/14 [facility] IMMUNIZATION ADMINISTRATION (INCLUDES PERCUTANEOUS, INTRADERMAL, SUBCUTANEOUS, OR INTRAMUSCULAR INJECTIONS); 1 VACCINE (SINGLE OR COMBINATION VACCINE/TOXOID) 12/18 [facility] ADMINISTRATION OF PATIENT-FOCUSED HEALTH RISK ASSESSMENT INSTRUMENT (EG, HEALTH HAZARD APPRAISAL) WITH SCORING AND DOCUMENTATION, PER STANDARDIZED INSTRUMENT 12/11 [facility] THERAPEUTIC PROCEDURE, 1 OR MORE AREAS, EACH 15 MINUTES; THERAPEUTIC EXERCISES TO DEVELOP STRENGTH AND ENDURANCE, RANGE OF MOTION AND FLEXIBILITY 10/13 [facility] THERAPEUTIC PROCEDURE, 1 OR MORE AREAS, EACH 15 MINUTES; THERAPEUTIC EXERCISES TO DEVELOP STRENGTH AND ENDURANCE, RANGE OF MOTION AND FLEXIBILITY 09/30 [facility] THERAPEUTIC PROCEDURE, 1 OR MORE AREAS, EACH 15 MINUTES; THERAPEUTIC EXERCISES TO DEVELOP STRENGTH AND ENDURANCE, RANGE OF MOTION AND FLEXIBILITY 09/18 [facility] THERAPEUTIC PROCEDURE, 1 OR MORE AREAS, EACH 15 MINUTES; THERAPEUTIC EXERCISES TO DEVELOP STRENGTH AND ENDURANCE, RANGE OF MOTION AND FLEXIBILITY 09/01 [facility] PHYSICAL OR MANIPULATIVE THERAPY PERFORMED FOR MAINTENANCE RATHER THAN HOAHAOISM 08/31 [facility] Physical Therapy: ___ Se ion Segments, 15 Minutes Each Physical Therapy: ___ Session Segments, 15 Minutes Each [id number] 09/30 MARY ELLEN WALTER 30 min [facility] Physical Therapy: ___ Se ion Segments, 15 Minutes Each Physical Therapy: ___ Session Segments, 15 Minutes Each 52986 09/18 CYNTHIA CAMPO [facility] Physical Therapy: ___ Se ion Segments, 15 Minutes Each Physical Therapy: ___ Session Segments, 15 Minutes Each 94309 09/02 MARY RODRIGUEZ 30 min [facility] Physical or manipulative therapy performed for maintenance rather than episcopal 08/31 BARRY MORGAN [facility] Osteopathic Manip Treatment (OMT) 1-2 Body Regions Involved Osteopathic Manip Treatment (OMT) 1-2 Body Regions Involved [id number] 08/31 BARRY MROGAN [facility] Physical Therapy: ___ Se ion Segments, 15 Minutes Each Physical Therapy: ___ Session Segments, 15 Minutes Each 34816 08/31 BARRY MORGAN Physical Therapy Service Evaluation Moderate Complexity Physical Therapy Service Evaluation Moderate Complexity 93370 08/31 BARRY MORGAN A isted Exercises For ROM Assisted [place] 59195 04/24 SWAPNIL GARRISON Standing hip flexor stretch, standing adductor stretch to replace poor stretching 8 minutes [facility] Psychiatric Diagnostic Evaluation Review of Records and Reports Psychiatric Diagnostic Evaluation Review of Records and Reports 17029 03/26 RIGOBERTO RIVAS [facility] Physical Therapy Mobilization Joint Physical Therapy Mobilization Joint 84545 01/06 ROOPA SULLIVAN Modalities Heat Hot Packs Modalities Heat Hot Packs 51449 01/06 ROOPA SULLIVAN Physical Therapy: ___ Se ion Segments, 15 Minutes Each Physical Therapy: ___ Session Segments, 15 Minutes Each 13387 01/06 ROOPA SULLIVAN Physical Therapy Mobilization Joint Physical Therapy Mobilization Joint 81904 12/29 ROOPA SULLIVAN Physical Therapy: ___ Se ion Segments, 15 Minutes Each Physical Therapy: ___ Session Segments, 15 Minutes Each 43383 12/29 ROOPA SULLIVAN Modalities Heat Hot Packs Modalities Heat Hot Packs 96118 12/29 ROOPA SULLIVAN Physical Therapy: ___ Se ion Segments, 15 Minutes Each Physical Therapy: ___ Session Segments, 15 Minutes Each 27128 12/22 ROOPA SULLIVAN Physical Therapy Mobilization Joint Physical Therapy Mobilization Joint 17379 12/22 ROOPA SULLIVAN Modalities Heat Hot Packs Modalities Heat Hot Packs 82851 12/22 ROOPA SULLIVAN Physical Therapy: ___ Se ion Segments, 15 Minutes Each Physical Therapy: ___ Session Segments, 15 Minutes Each 56769 12/19 ROOPA SULLIVAN Physical Therapy Mobilization Joint Physical Therapy Mobilization Joint 95876 12/19 ROOPA SULLIVAN Modalities Heat Hot Packs Modalities Heat Hot Packs 78496 12/19 ROOPA SULLIVAN Physical Therapy: ___ Se ion Segments, 15 Minutes Each Physical Therapy: ___ Session Segments, 15 Minutes Each 50779 12/11 ROOPA SULLIVAN Physical Therapy Mobilization Joint Physical Therapy Mobilization Joint 11457 12/11 ROOPA SULLIVAN [facility] Modalities Heat Hot Packs Modalities Heat Hot Packs 28994 12/11 ROOPA SULLIVAN [facility] Modalities Heat Hot Packs Modalities Heat Hot Packs 17594 12/08 ROOPA SULLIVAN [facility] Physical Therapy: ___ Se ion Segments, 15 Minutes Each Physical Therapy: ___ Session Segments, 15 Minutes Each 78934 12/08 ROOPA SULLIVAN [facility] Physical Therapy Mobilization Joint Physical Therapy Mobilization Joint 20760 12/08 ROOPA SULLIVAN [facility] Occupational Therapy Re-Evaluation Occupational Therapy Re-Evaluation 35890 11/11 FARHANA MCKNIGHT [facility] PT A e ment Kinetic Training PT Assessment Kinetic Training 15245 11/07 SWAPNIL GARRISON Squat and lift pattern training 8 minutes [facility] Chiropractic Manip Treatmt (CMT) Spinal One To Two Regions Chiropractic Manip Treatmt (CMT) Spinal One To Two Regions 68661 11/07 SWAPNIL GARRISON T-spine prone l-spine side posture with good response to treatment DoD Mobilization Soft Ti ue Mobilization Soft Tissue 22093 11/04 DANE ARMSTRONG X10 min DoD Modalities Heat Hot Packs Modalities Heat Hot Packs 99610 11/04 DANE ARMSTRONG X15 min concurrent with IFC DoD Modalities Electrical Stimulation Modalities Electrical Stimulation 40317 11/04 DANE ARMSTRONG X15 min DoD Physical Therapy: ___ Se ion Segments, 15 Minutes Each Physical Therapy: ___ Session Segments, 15 Minutes Each 63046 10/28 ROOPA SULLIVAN [facility] Modalities Electrical Stimulation Modalities Electrical Stimulation 93807 10/28 ROOPA SULLIVAN [facility] Physical Therapy Mobilization Joint Physical Therapy Mobilization Joint 84221 10/28 ROOPA SULLIVAN [facility] Modalities Heat Hot Packs Modalities Heat Hot Packs 55759 10/28 ROOPA SULLIVAN [facility] Preventive Medicine Administration Of Health Risk Questionnaire Patient-Focused Preventive Medicine Administration Of Health Risk Questionnaire Patient-Focused 53187 10/27 NIKO CORDOVA [facility] Physical Therapy Mobilization Joint Physical Therapy Mobilization Joint 30015 10/24 JULIO CESAR GIBBS [facility] Modalities Heat Hot Packs Modalities Heat Hot Packs 41927 10/24 JULIO CESAR GIBBS N [facility] Modalities Electrical Stimulation Modalities Electrical Stimulation 16363 10/24 JULIO CESAR GIBBS N [facility] Internet Med Svc Qual Nonphys Healthcare Prof Up To 7 Days Estab Patient Internet Med Svc Qual Nonphys Healthcare Prof Up To 7 Days Estab Patient 97442 10/23 JACK COLLAZO [facility] Preventive Medicine Administration Of Health Risk Questionnaire Patient-Focused Preventive Medicine Administration Of Health Risk Questionnaire Patient-Focused 98741 10/23 JACK COLLAZO [facility] Internet Med Svc Qual Nonphys Healthcare Prof Up To 7 Days Estab Patient Internet Med Svc Qual Nonphys Healthcare Prof Up To 7 Days Estab Patient 36421 10/21 TYLER MONK [facility] Modalities Electrical Stimulation Modalities Electrical Stimulation 67845 10/10 JULIO CESAR GIBBS [facility] Modalities Heat Hot Packs Modalities Heat Hot Packs 19576 10/10 JULIO CESAR GIBBS [facility] Physical Therapy Mobilization Joint Physical Therapy Mobilization Joint 09516 10/10 JULIO CESAR GIBBS [facility] Physical Therapy Mobilization Joint Physical Therapy Mobilization Joint 90693 10/01 ROOPA SULLIVAN Modalities Electrical Stimulation Modalities Electrical Stimulation 76220 10/01 ROOPA SULLIVAN Modalities Heat Hot Packs Modalities Heat Hot Packs 07257 10/01 ROOPA SULLIVAN Modalities Electrical Stimulation Modalities Electrical Stimulation 64903 09/23 ROOPA SULLIVAN Modalities Heat Hot Packs Modalities Heat Hot Packs 13789 09/23 ROOPA SULLIVAN Physical Therapy Mobilization Joint Physical Therapy Mobilization Joint 89712 09/23 ROOPA SULLIVAN [facility] A isted Exercises For ROM Assisted Exercises For ROM 73256 09/23 FARHANA MCKNIGHT [facility] Occupational Therapy Evaluation Moderate Complexity 09/23 FARHANA MCKNIGHT [facility] Internet Med Svc Qual Nonphys Healthcare Prof Up To 7 Days Estab Patient Internet Med Svc Qual Nonphys Healthcare Prof Up To 7 Days Estab Patient 53123 09/10 TYLER MONK [facility] Preventive Medicine Administration Of Health Risk Questionnaire Patient-Focused Preventive Medicine Administration Of Health Risk Questionnaire Patient-Focused 26008 07/03 JACK COLLAZO [facility] Non-Physician Phone Call To Patient/Provider Brief (5-10min) Non-Physician Phone Call To Patient/Provider Brief (5-10min) 75260 01/30 MANJINDER MASTERS [facility] Non-Physician Phone Call To Patient/Provider Brief (5-10min) Non-Physician Phone Call To Patient/Provider Brief (5-10min) 66806 01/22 LETICIA HARPER [facility] Preventive Medicine Administration Of Health Risk Questionnaire Patient-Focused Preventive Medicine Administration Of Health Risk Questionnaire Patient-Focused 69853 01/09 JACK COLLAZO [facility] Psychotherapy Group Interview Psychotherapy Group Interview 83460 01/07 ISAEL LAI [facility] Physical or manipulative therapy performed for maintenance rather than episcopal 08/21 DEMETRIUS FELIX [facility] Physical Therapy Service Evaluation Low Complexity Physical Therapy Service Evaluation Low Complexity 36155 08/21 DEMETRIUS FELIX [facility] Chiropractic Manip Treatmt (CMT) Spinal One To Two Regions Chiropractic Manip Treatmt (CMT) Spinal One To Two Regions 02544 08/14 SWAPNIL GARRISON t-spine prone l-spine side posture with good response to treatment [facility] Non-Physician Phone Call To Patient/Provider Brief (5-10min) Non-Physician Phone Call To Patient/Provider Brief (5-10min) 75788 08/13 LETICIA HARPER [facility] Non-Physician Phone Call To Patient/Provider Brief (5-10min) Non-Physician Phone Call To Patient/Provider Brief (5-10min) 25316 07/18 GAEL NAVARRETE [facility] Modalities Iontophoresis Modalities Iontophoresis 68913 07/11 KASSIE WAGGONER [facility] Needle-free injection device, each 07/11 KASSIE WAGGONER [facility] Needle-free injection device, each 07/08 KASSIE WAGGONER [facility] Modalities Iontophoresis Modalities Iontophoresis 18232 07/08 KASSIE WAGGONER [facility] Modalities Iontophoresis Modalities Iontophoresis 96824 07/04 DESTINY GOLDBERG [facility] Needle-free injection device, each 07/04 DESTINY GOLDBERG [facility] Physical Therapy: ___ Se ion Segments, 15 Minutes Each Physical Therapy: ___ Session Segments, 15 Minutes Each 39654 07/04 DESTINY GOLDBERG [facility] Waiver services; not otherwise specified (NOS) TASIA ROSALES [facility] Chiropractic Manip Treatmt (CMT) Spinal Three To Four Region Chiropractic Manip Treatmt (CMT) Spinal Three To Four Region 21359 MARCIA, SCOT A Discussed procedures, alternatives and risks involved with spinal manipulation. Informed consent given and signed by the patient. Use of manual manipulation and other techniques should they be necessary. Alternatives include pharmaceuticals and physical therapy from the [facility], other alternatives include referrals and massage therapy. More common risks associated with spinal manipulation include pain and soreness in the areas that are subject to spinal manipulation, less common risks include vascular accidents. Avoid aggravating activities when possible. Hypo: C5-T2 AP: T4-T7 Side posture: L4 L5 SIJ Patient tolerated treatment well, no procedural pain. STG: Decrease pain frequency intensity, duration within 3-4 weeks. LTG: Maintain with home exercise program. DoD Mobilization Soft Ti ue Mobilization Soft Tissue 66175 KENNEDY, SCOT A 8 min upper and mid back, traps, rhomboids, paraspinal muscles. Tolerates treatment well. DoD Modalities Heat Hot Packs Modalities Heat Hot Packs 24532 KENNEDY, SCOT A 10 min mid to lower back. [facility] Ophthalmological New Patient Start Comprehensive Care Ophthalmological New Patient Start Comprehensive Care 66865 ROBERTA KOHLI Determination Of Refractive State Determination Of Refractive State 52826 ROBERTA KOHLI Spectacles Services Fitting Monofocal Except For Aphakia Spectacles Services Fitting Monofocal Except For Aphakia 21085 ROBERTA KOHLI Computerized Corneal Topography Computerized Corneal Topography 37635 ROBERTA KOHLI Chiropractic Manip Treatmt (CMT) Spinal Three To Four Region Chiropractic Manip Treatmt (CMT) Spinal Three To Four Region 24487 KENNEDY, SCOT A Hypo: C6-T1 AP: T7 T8 Side posture: L5 SIJ Patient tolerated treatment well, no procedural pain. Avoid aggravating activities when possible. STG: Decrease pain frequency intensity, duration within 3-4 weeks. LTG: Maintain with home exercise program. Continue to stretch as directed. Goal: Increase length of muscles to decrease stress to joints and to increase segmental mobility. DoD Modalities Heat Hot Packs Modalities Heat Hot Packs 53941 KENNEDY, SCOT A 10 min upper and lower back. DoD A isted Exercises For ROM Assisted Exercises For ROM 51719 KATTY KENNEDY A 8 min hamstrings, hip rotators, hip extensors. Tolerates treatment well. HEP sheet for stretching given. [facility] Brief communication technology-based service, e.g. virtual check-in, by a physician or other qualified health care profe shyla who can report evaluation and management services, provided to an established patient, not originating from a related E/M service provided within the previous 7 days nor leading to an E/M service or procedure within the next 24 hours or soonest available appointment; 5-10 minutes of medical discu ion NIKKI YEBOAH [facility] Preventive Medicine Administration Of Health Risk Questionnaire Patient-Focused Preventive Medicine Administration Of Health Risk Questionnaire Patient-Focused 72978 NIKKI YEBOAH [facility] Physical Therapy Service Re-Evaluation Physical Therapy Service Re-Evaluation 10953 BARRY MORGAN [facility] Physical Therapy: ___ Se ion Segments, 15 Minutes Each Physical Therapy: ___ Session Segments, 15 Minutes Each 00667 BARRY MORGAN [facility] Internet Med Svc Qual Nonps Healthcare Prof Up To 7 Days Estab Patient Internet Med Svc Qual Nonps Healthcare Prof Up To 7 Days Estab Patient 30263 ROSALBA WHITFIELD [facility] Immunization Administration By Injection, One Vaccine Immunization Administration By Injection, One Vaccine 51435 MOLLY RIVERA [facility] Td Vaccine Preservative Free, Adsorbed Td Vaccine Preservative Free, Adsorbed 79172 MOLLY RIVERA Td (adult), adsorbed; Series #: 1; .5 mL; IM; Right Arm; Mfg: [employer]; Lot: [id number]; VIS given (Ijeoma: 03/05/2017). [facility] Influenza Split Virus Vaccine IM Preserv Free 0.5mL Dosage Quadrivalent Influenza Split Virus Vaccine IM Preserv Free 0.5mL Dosage Quadrivalent 11058 MILTON PEARSON Influenza, Inj., quad., preservative free (Afluria); Series #: 1; 0.5 mL; IM; Left Arm; Mfg: Seqirus; Lot: [id number]; VIS given (Ijeoma: 07/09/2019). [facility] Chiropractic Manip Treatmt (CMT) Spinal Three To Four Region Chiropractic Manip Treatmt (CMT) Spinal Three To Four Region 16858 MANUEL SERRATO [facility] Physical Therapy Neuromuscular Re-education Physical Therapy Neuromuscular Re-education 37293 07/04 DESTINY GOLDBERG [facility] Physical Therapy Service Evaluation Low Complexity Physical Therapy Service Evaluation Low Complexity 48223 07/04 DESTINY GOLDBERG [facility] Non-Physician Phone Call To Patient/Provider Brief (5-10min) Non-Physician Phone Call To Patient/Provider Brief (5-10min) 81705 06/28 LETICIA HARPER [facility] Patient Counseling Medical Management Five To Eight Patients Patient Counseling Medical Management Five To Eight Patients 50965 05/31 CLARENCE PEACOCK [facility] Non-Physician Phone Call To Patient/Provider Brief (5-10min) Non-Physician Phone Call To Patient/Provider Brief (5-10min) 86267 05/24 LETICIA HARPER [facility] Preventive Medicine Administration Of Health Risk Questionnaire Patient-Focused Preventive Medicine Administration Of Health Risk Questionnaire Patient-Focused 07536 05/22 JACK COLLAZO [facility] Psychometric Neuropsych Testing Battery Admin By Computer Psychometric Neuropsych Testing Battery Admin By Computer 59772 05/22 MARILU BLEVINS [facility] Psychiatric Diagnostic Evaluation Review of Records and Reports Psychiatric Diagnostic Evaluation Review of Records and Reports 79497 05/20 MARILU BLEVINS [facility] Mobilization Soft Ti ue Mobilization Soft Tissue 35381 03/28 DESTINY GOLDBERG [facility] Physical Therapy Service Re-Evaluation Physical Therapy Service Re-Evaluation 04936 03/28 DESTINY GOLDBERG [facility] Physical Therapy Service Evaluation Low Complexity Physical Therapy Service Evaluation Low Complexity 46457 03/07 DESTINY GOLDBERG [facility] Physical Therapy: ___ Se ion Segments, 15 Minutes Each Physical Therapy: ___ Session Segments, 15 Minutes Each 80054 02/28 DESTINY GOLDBERG [facility] Mobilization Soft Ti ue Mobilization Soft Tissue 69732 02/28 DESTINY GOLDBERG [facility] Physical Therapy Education Orthotics Training 02/21 NEVILLE PRICE [facility] Foot, arch support, removable, premolded, longitudinal, each 02/21 NEVILLE PRICE [facility] Chiropractic Manip Treatmt (CMT) Spinal One To Two Regions Chiropractic Manip Treatmt (CMT) Spinal One To Two Regions 75091 11/23 SWAPNIL GARRISON T-spine prone l-spine side posture with good response to treatment DoD Chiropractic Manip Treatmt (CMT) Spinal One To Two Regions Chiropractic Manip Treatmt (CMT) Spinal One To Two Regions 20355 07/17 SWAPNIL GARRISON t-spine prone with good responce to treatment DoD Chiropractic Manip Treatmt (CMT) Spinal One To Two Regions Chiropractic Manip Treatmt (CMT) Spinal One To Two Regions 49324 07/09 SWAPNIL GARRISON t-spine prone with good response to treatment DoD Chiropractic Manip Treatmt (CMT) Spinal One To Two Regions Chiropractic Manip Treatmt (CMT) Spinal One To Two Regions 64150 06/25 SWAPNIL GARRISON T-spine prone with good response to treatment DoD PT A e ment Kinetic Training PT Assessment Kinetic Training 72337 06/25 SWAPNIL GARRISON KB swing pattern and other exercises; 8 minutes DoD Physical Therapy Neuromuscular Re-education Physical Therapy Neuromuscular Re-education 94659 06/18 SWAPNIL GARRISON Seated, standing posture review hip hinge review for adls and job demands 8 minutes DoD Chiropractic Manip Treatmt (CMT) Spinal One To Two Regions Chiropractic Manip Treatmt (CMT) Spinal One To Two Regions 00284 06/18 SWAPNIL GARRISON T-spine prone l-spine side posture with good response to treatment DoD Physical Therapy Neuromuscular Re-education Physical Therapy Neuromuscular Re-education 77552 06/11 SWAPNIL GARRISON Seated, standing posture; hip hinge; lit pattern training for adls job demands and exercise 12 minutes DoD Determination Of Refractive State Determination Of Refractive State 64518 05/04 ALTHEA REYNOSO Spectacles Services Fitting Monofocal Except For Aphakia Spectacles Services Fitting Monofocal Except For Aphakia 21487 05/04 ALTHEA REYNOSO [facility] Ophthalmological New Patient Start Comprehensive Care Ophthalmological New Patient Start Comprehensive Care 87448 05/04 ALTHEA REYNOSO Computerized Corneal Topography Computerized Corneal Topography 30416 05/12 MANJINDER BRADY [facility] Spectacles Services Fitting Monofocal Except For Aphakia Spectacles Services Fitting Monofocal Except For Aphakia 27986 05/12 MANJINDER BRADY Determination Of Refractive State Determination Of Refractive State 95299 05/12 MANJINDER BRADY Ophthalmological Prior Patient Start Comprehensive Care Ophthalmological Prior Patient Start Comprehensive Care 72756 05/12 MANJINDER BRADY Physical Therapy: ___ Se ion Segments, 15 Minutes Each Physical Therapy: ___ Session Segments, 15 Minutes Each 17646 03/24 NICHOLAS REEVES Physical Therapy Service Evaluation Physical Therapy Service Evaluation 92913 03/24 NICHOLAS REEVES Corneal Pachymetry Corneal Pachymetry 97905 07/06 BEHZAD ROWAN Computerized Corneal Topography Computerized Corneal Topography 46962 07/06 BEHZAD ROWAN Spectacles Services Fitting Monofocal Except For Aphakia Spectacles Services Fitting Monofocal Except For Aphakia 22583 07/06 BEHZAD ROWAN Ophthalmological New Patient Start Comprehensive Care Ophthalmological New Patient Start Comprehensive Care 81358 07/06 BEHZAD ROWAN Determination Of Refractive State Determination Of Refractive State 07989 07/06 BEHZAD ROWAN Phys Therapy Education Self Care Training - Per 15 Minutes Phys Therapy Education Self Care Training - Per 15 Minutes 43184 10/18 GIAN HOFFMANN Physical Therapy Service Re-Evaluation Physical Therapy Service Re-Evaluation 45383 10/18 GIAN HOFFMANN Influenza Split Virus Vaccine 0.5mL Dosage Intramuscular 10/04 HANNA DURHAM Immunization Administration By Injection, One Vaccine Immunization Administration By Injection, One Vaccine 45405 10/04 HANNA DURHAM Physical Therapy Mobilization Joint Physical Therapy Mobilization Joint 94926 09/22 NIGEL SANCHEZ [facility] Modalities Ultrasound Modalities Ultrasound 13580 09/22 NIGEL SANCHEZ Physical Therapy: ___ Se ion Segments, 15 Minutes Each Physical Therapy: ___ Session Segments, 15 Minutes Each 25016 09/22 NIGEL SANCHEZ Physical Therapy Mobilization Joint Physical Therapy Mobilization Joint 10805 09/08 JASMIN HINSON [facility] Modalities Ultrasound Modalities Ultrasound 05339 09/08 JASMIN HINSON [facility] Physical Therapy: ___ Se ion Segments, 15 Minutes Each Physical Therapy: ___ Session Segments, 15 Minutes Each 96323 09/08 JASMIN HINSON [facility] Physical Therapy: ___ Se ion Segments, 15 Minutes Each Physical Therapy: ___ Session Segments, 15 Minutes Each 51939 08/25 SAMREEN GALLAGHER [facility] Modalities Ultrasound Modalities Ultrasound 23962 08/25 SAMREEN GALLAGHER [facility] Physical Therapy Mobilization Joint Physical Therapy Mobilization Joint 84725 08/25 SAMREEN GALLAGHER [facility] Physical Therapy: ___ Se ion Segments, 15 Minutes Each Physical Therapy: ___ Session Segments, 15 Minutes Each 10942 08/23 NIGEL SANCHEZ [facility] Physical Therapy Mobilization Joint Physical Therapy Mobilization Joint 79562 08/23 NIGEL SANCHEZ [facility] Modalities Ultrasound Modalities Ultrasound 81166 08/18 NIGEL SANCHEZ Physical Therapy: ___ Se ion Segments, 15 Minutes Each Physical Therapy: ___ Session Segments, 15 Minutes Each 39432 08/18 NIGEL SANCHEZ Physical Therapy Mobilization Joint Physical Therapy Mobilization Joint 74903 08/18 NIGEL SANCHEZ [facility] Modalities Ultrasound Modalities Ultrasound 47511 08/13 JASMIN HINSON [facility] Physical Therapy Mobilization Joint Physical Therapy Mobilization Joint 49647 08/13 JASMIN HINSON [facility] Physical Therapy: ___ Se ion Segments, 15 Minutes Each Physical Therapy: ___ Session Segments, 15 Minutes Each 03933 08/13 JASMIN HINSON [facility] Hepatitis A Vaccine Adult Dosage (Intramuscular Use) Hepatitis A Vaccine Adult Dosage (Intramuscular Use) 57035 08/12 BEBEKRISTY FLETCHER [facility] Vaccines Viral Polio, Inactivated Vaccines Viral Polio, Inactivated 53525 08/12 BEBEKRISTY FLETCHER [facility] Modalities Ultrasound Modalities Ultrasound 27019 08/06 JASMIN HINSON [facility] Physical Therapy Mobilization Joint Physical Therapy Mobilization Joint 16879 08/06 JASMIN HINSON [facility] Physical Therapy: ___ Se ion Segments, 15 Minutes Each Physical Therapy: ___ Session Segments, 15 Minutes Each 66174 08/06 JASMIN HINSON [facility] Physical Therapy Mobilization Joint Physical Therapy Mobilization Joint 73406 08/05 GIAN HOFFMANN Physical Therapy Service Evaluation Physical Therapy Service Evaluation 26397 08/05 GIAN HOFFMANN Corneal Pachymetry Both Eyes Corneal Pachymetry Both Eyes 98422 06/10 KENDY RODAS Optical Coherence Tomography 06/10 KENDY RODAS Fundus Photography Fundus Photography 53261 06/10 KENDY RODAS Spectacles Services Fitting Monofocal Except For Aphakia Spectacles Services Fitting Monofocal Except For Aphakia 42646 06/10 KENDY RODAS Ophthalmological New Patient Start Comprehensive Care Ophthalmological New Patient Start Comprehensive Care 14681 06/10 KENDY RODAS Determination Of Refractive State Determination Of Refractive State 43371 06/10 KENDY RODAS Extensive Color Vision Testing Extensive Color Vision Testing 11787 09/26 IONA ORTIZ Fundus Photography Fundus Photography 85374 09/26 IONA ORTIZ Visual Fernandez Test Intermediate Examination Visual Fernandez Test Intermediate Examination 45555 09/26 IONA ORTIZ Determination Of Refractive State Determination Of Refractive State 41947 09/26 IONA ORTIZ Ophthalmological Prior Patient Start Comprehensive Care Ophthalmological Prior Patient Start Comprehensive Care 24992 09/26 IONA ORTIZ Extensive Color Vision Testing Extensive Color Vision Testing 71131 12/23 IONA ORTIZ Ophthalmological New Patient Start Intermediate Level Care Ophthalmological New Patient Start Intermediate Level Care 35856 12/23 IONA ORTIZ No data available for this section Ambulato ry Pharmacy Social History Combined list of available smoking, tobacco, and 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 Social History Type Response Date Comment Sourc e Male 08/03/2020 Ambulatory Pha rmacy This section is an empty social history section. [facility] Tobacco Frequent/Daily exposure to secondhand smoke in indoor/confined spaces No. Cigarette use: Never-cigarette user. Other Tobacco use: Never-other tobacco user (not cigarettes). 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 Additional future care activities may be listed in the Plan of Care section. Result Assessment and Plan Date Source Assessment and Plan Extracted from:Title : MHA/PHA Author: ZAHRA MOORE NP Date: 07/17/24 Encounter for issue of other medical certificate Assessment and Plan Reviewed documentation of height and weight, current medical conditions and deployment related health problems, to include screening for traumatic brain injury exposure, allergies, medications, required immunizations, medical readiness laboratory tests, audiology, and optometry examinations. Completed screenings and provided patient education as appropriate. ? Assessed and reviewed ?responses to AUDIT= ? ?1, PCL-C=0, ?PHQ-8=?0?screening tools, at this time no tasking or consults needed. Patient is at?no elevated risk. Patient aware of services available (911, [phone], One source, Health Policy Analyst Services, Walk in , Walk in ER, Notify chain of command, etc) and how to contact them if needed. SM denies suicidal and homicidal ideation.? ? Preventative services reviewed and discussed per age, race, and gender. Reviewed immunization history and assessed immunization status. Reviewed physical activity including aerobic and isometric exercises.??Reviewed risk sexual risk factors and previous STD testing date, including HIV. Reviewed readiness labs and examinations needed including recommendation for lipid screening every 5 years beginning at age 35. Compared medications reported by dietary service aide to active medication list in medical record and any variances were documented.? ? Any complaints or issues identified while conducting the PHA have been addressed and or referred back to the patient s ?PCM for care.?s[employer] membership advisors advised to follow up with PCM, Behavioral Health, ED/911, or One Source as needed for continuation of care, and/or further evaluation during exacerbations of physical and/or psychological illness or injury. See PHA document for additional information.?17?minutes of total time spent reviewing records, discussing health concerns and preventative health measures with Tip Mender. Extracted from:Title: L shoulder Author: NITZA YEH PA-C Date: 11/06/23 1.?Shoulder pain Est, acute on chronic Original injury in 2007.? Previously seen by PT with relief in 2019. Reinjured at the gym lifting weights. Seen at ER 10/30 Referral to PT today No cardio or push ups F/u after PT sessions if not at goal.? Consider imaging. ? Ordered: Referral Request 2.0 ? 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 No?duty restrictions - Fitness:? Yes?fitness restrictions - Mobility:? No?mobility restrictions - DAWG referral:? NO?code needed - Retention:? Meets?retention standards - Command contact:? NO?command contacted needed ? Capt Nitza Yeh [employer], [place] ? THIS NOTE HAS BEEN TRANSCRIBED INTO THE MEDICAL RECORD USING VOICE ACTIVATED SOFTWARE - PLEASE EXCUSE ANY ERRORS IN SYNTAX OR SPELLING. ?IT WAS DICTATED WITH CARE BUT NOT PROOF READ WITH A HIGH DEGREE OF SCRUTINY. ?IF THIS VISIT INVOLVED LABS / RADS OR OTHER STUDIES, PT WILL BE CALLED FOR ANY ABNORMAL RESULTS. DIAGNOSIS, TREATMENT PLAN (INCLUDING MEDICATIONS and THEIR SIDE EFFECTS IF ANY), OPTIONS WERE DISCUSSED WITH PATIENT WHO VERBALIZED UNDERSTANDING AND AGREEMENT WITH PLAN. ? Extracted from:Title: SCT counseling Author: NITZA YEH PA-C Date: 01/28/23 1.?Sickle cell trait Called, spoke with pt verified x 2 ID. Discussed the following in regards to sickle cell trait status: ? Sickle cell trait is a benign carrier state and not a disease. ? There are implications for genetic counseling and a potential risk of having a child with sickle cell disease. (See 'Reproductive issues' below.) ? Individuals with sickle cell trait have the same life expectancy as the general population. ? Individuals with sickle cell trait are at risk for a few very rare life-threatening complications, including rhabdomyolysis and/or sudden with prolonged physical activity ( boot camp, training for an athletic competition). In addition, risks are increased for a rare cancer (renal medullary carcinoma), complications of traumatic hyphema, and splenic infarction at high altitudes. Thus, it is important to seek medical attention promptly for hematuria, eye trauma, or severe abdominal pain, especially when traveling to high-altitude areas or in situations with low oxygen tension. ? Individuals with sickle cell trait commonly develop hyposthenuria, increasing the risk of dehydration and associated complications. Therefore, counseling to maintain adequate fluid intake to prevent dehydration is a core necessity for sickle cell trait carriers. ? 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 - Fitness: No fitness restrictions resulting from this encounter.? - Mobility: No mobility restrictions resulting from this encounter - DAWG referral: NO code needed - Retention: Meets retention standards - Command contact: NO command contacted needed ? ? THIS NOTE HAS BEEN TRANSCRIBED INTO THE MEDICAL RECORD USING VOICE ACTIVATED SOFTWARE - PLEASE EXCUSE ANY ERRORS IN SYNTAX OR SPELLING. ?IT WAS DICTATED WITH CARE BUT NOT PROOF READ WITH A HIGH DEGREE OF SCRUTINY. ?IF THIS VISIT INVOLVED LABS / RADS OR OTHER STUDIES, PT WILL BE CALLED FOR ANY ABNORMAL RESULTS. DIAGNOSIS, TREATMENT PLAN (INCLUDING MEDICATIONS and THEIR SIDE EFFECTS IF ANY), OPTIONS WERE DISCUSSED WITH PATIENT WHO VERBALIZED UNDERSTANDING AND AGREEMENT WITH PLAN. ? 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 -The review of the questionnaire provided by the member in [facility] did not raise any immediate concerns._ - ASIMS: IMR? ?Green?after PHA review.?Member IMR UTD ? -?WWQ without ALC or pending MEB. ? - Cleared for?Fitness, duty and?mobility ? ? 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 -[facility] MHA portion of Non-flyer PHA completed via phone call today and copied to [facility] .? -SM advised that the annual PHA will be finished by PCM virtually and does not require a clinic visit. ? -Telephone call today identified NO acute Mental Health concerns after screening. -No SI/HI, PTSD, anxiety or depression. No Sleep or substance use concerns. -Member stated no need for?MH or other assistance today. -SM denies need for? provider to reviewed available MH resources with?member.? -Member will follow up with PCM for any health?concerns as?needed.? -I did not review past medical histories or advise on preventive services ? as part of the MHA process for basic readiness screening. -I have reviewed member's IMR with member and processes ?that need to be accomplished to become basic readiness complete ? - Able to Arm - Reviewed ENRIQUETA; WWQ - No new Duty/Mobility/Fitness Restriction resulting from this encounter - Retention: No RILO or MEB needed ? Extracted from:Title: Back Pain Author: NIKKI DELACRUZ PA-C Date: 04/30/22 1.?Back pain Contacted patient verified full name and date of , reviewed MRI findings?from 2020?mild facet arthrosis at L5/S1?possibly?etiology to?symptoms, recommend?Mobic 15 mg daily?as needed for pain,?will refer to PT for trial of dry needling patient advised to submit secure message if symptoms persist?despite conservative care and will refer to pain management. Ordered: meloxicam(Mobic 15 mg oral tablet), 1 tab(s), Oral, Daily, # 90 tab(s), 0 total refill(s), Maintenance, 1 tab(s) Oral Daily, Pharmacy: [facility] [Not filled] Referral Request 2.0 ? Duty: No duty restrictions resulting from this encounter. Fitness: No fitness restrictions resulting from this encounter.? Mobility: No mobility restrictions resulting from this encounter. ? Retention: Meets retention standards, no AMRO referral needed at this time Command Contact: Not required ? ? ? Extracted from:Title: low back pain Author: HALEY BURKETT PA-C Date: 09/05/21 Orders: Office Visit Level 3 Est 26669 For this issue, he is takin? nothing ? Established, new: 36 y/o m w/hx of intermittent LBP with recent exacerbation after performing hip thrusters at gym which is improving. L-spine rads/MRI unremarkable.?Today, pain is improving w/rest. Will continue to monitor ? Follow up prn ? PVU of the POC and intent to comply ? Future Appointments Appointment Date: 11/20/2024 10:30:00 AM Scheduled Provider: ALICIA GABRIEL OD Location: [id number] Appointment Type: OPTO FTR Future Scheduled TestsRadiologyXR Shoulder Complete 2+ Views Left 11/13/23 11/04/2024 Ambulatory Pharmacy Functional Status Combined list of recent functional and cognitive assessments recorded at [facility] [employer] [facility]VA Functional Newton Measurement (FIM) Scale: 1 = Total Assistance (Subject = 0% +), 2 = Maximal Assistance (Subject = 25% +), 3 = Moderate Assistance (Subject = 50% +), 4 = Minimal Assistance (Subject = 75% +), 5 = Supervision, 6 = Modified Newton (Device), 7 = Complete Newton (Timely, Safely). Assessment Date/Time Source Assessment Type Assessment Skill Assessment Score Assessment Details No data available for this section
== END 2024-10-29 11:26 | disposition home or self-care (01) ==
LOC: HO.HMCC 08:45
PROVIDERS: PCP Internal Medicine; Visit Provider Internal Medicine
DX: B00.9 Herpesviral infection, unspecified (principal)

== ENCOUNTER → 2024-10-29 08:45 | Outpatient (BNVA) | payer OTHER, SELFPAY | PROVIDERS: PCP Internal Medicine; Visit Provider Internal Medicine ==

== ENCOUNTER 2024-11-27 15:13 | Outpatient (AMB) | payer OTHER, SELFPAY ==
[2024-11-27 15:14] VITALS: BP 116/74; PULSE 50; O2SAT 98; BMI 25.8
--- NOTE | 2024-11-27 15:14 | A.OFFPC_ITS ---
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 Required: No Accompanied by: Self / Same As Patient Allergies No Known Allergies Allergy (Verified 11/27/24 15:15) Medication List - Last Reconciled 11/27/24 by Yamileth Weber MD sertraline 50 mg PO DAILY 90 days Tobacco use date assessed: 11/27/24 Dental Screening Dental Screen Date: 11/27/24 Did you have a dental visit in the last 12 months?: Yes Did you have a dental problem in the last 6 months where you did not have access to dental care?: No Was dental information given to patient?: Patient has dentist HPI 2 months f/up HPI Details History - bulleted - The patient is a 39-year-old male pres enting with ongoing irritability and mood changes. - Reports slight improvements in irritab ility with current medication at 50 mg but still experiences issues. - Reports the ability to communicate mor e effectively with parents due to improved mood. - Reflects on the impact of medication o n mood, social interactions, and confidence levels. - Mild anemia noted in laboratory result s from August 27. - Hemoglobin level recorded at 13.6 g/dL , below the normal range for males. - Denies symptoms such as hemorrhoids or constipation. Review of Systems - Psychosocial: Reports improved emotion al communication with family; Denies calling home frequently. - Gastrointestinal: Denies hemorrhoids, constipation. - General: No fever no chills - Neurological: No headaches no dizziness - Ear nose throat: No sore throat no hearing difficulty no ear pain - Cardiovascular: No syncope, no chest pain, no palpitations - Gastrointestinal: No nausea vomiting or diarrhea - Endocrine: No polyuria polydipsia no heat intolerance - Genitourinary: No dysuria , no blood in urine Physical Exam - General: No acute distress - HEENT: No acute findings - Neck: Supple - Respiratory system: Able to talk in f ull sentences, no audible wheeze - cardiovascular: S1-S2 regular in rat e and rhythm - Gastrointestinal: No pain - Extremities: No new findings - RESPITE PROVIDER: Alert awake oriented x3 motor se nsory intact - Skin: Normal turgor Patient Instructions - Adjust medication dosage to 100 mg , c onfirming patient is comfortable with this adjustment. - Schedule follow-up labs prior to the n ext visit in three months to reassess anemia. - Encourage ongoing communication with hugh tere through regular text messages to maintain connections. [facility] Surgical History No pertinent past surgical history Social History Housing: House Patient Tobacco Use Status: Never used Tobacco e-Cigarette/Vaping Use: Never Used service: Yes Current occupational status: employed Cognitive needs: No Hearing needs: No Vision needs: No Questionnaire PHQ-9 Over the last 2 weeks, how often have you been bothered by any of the following problems? 1. Little interest or pleasure in doing things: not at all 2. Feeling down, depressed, or hopeless: not at all 3. Trouble falling or staying asleep, or sleeping too much: not at all 4. Feeling tired or having little energy: not at all 5. Poor appetite or overeating: not at all 6. Feeling bad about yourself - or that you are a failure or have let yourself or your family down: not at all 7. Trouble concentrating on things, such as reading the newspaper or watching television: not at all 8. Moving or speaking so slowly that other people could have noticed. Or the opposite - being so fidgety or restless that you have been moving around a lot more than usual: not at all 9. Thoughts that you would be better off or of hurting yourself in some way: not at all Total score: 0 Depression Screening Interpretation: Negative Depression Screening Done: Yes 20195 - PHQ-9 Billing: Yes Source: Developed by Drs. Brian Ang, Lisa Gomez, Johan Ivy and colleagues, with an educational tammi from [employer]. Thrive Questionnaire Date Thrive assessed: 11/27/24 I am a: Patient What is your living situation today?: I have a steady place to live Within the past 12 months, did the food you bought not last and you didn't have the money to get more?: Never true Within the past 12 months, did you worry whether your food would run out before you got money to buy more?: Never true Do you have trouble paying for medicines?: No Do you have trouble getting transportation to medical appointments?: No Do you have trouble paying your heating and electricity bill?: No Do you have trouble taking care of your child, family member or friend?: No Do you have trouble with day-to-day activities such as bathing, preparing meals, shopping, managing finances, etc.?: No Are you currently unemployed and looking for a job?: No Are you interested in more education?: Yes Please select the resources that you would like help with: None Currently or been in a relationship where the following occur: No concerns reported THRIVE Score: 0 AUDIT C Alcohol Use Questionnaire (AUDIT-C) 1. How often do you have a drink containing alcohol?: Monthly or less 2. How many drinks containing alcohol do you have on a typical day when you are drinking?: 1 or 2 3. How often do you have six or more drinks on one occasion?: Never Total Score: 1 Score Reviewed/Action Taken: Yes LINCOLN-7 AMB Questionnaire LINCOLN-7 Date LINCOLN - 7 assessed: 11/27/24 Feeling nervous, anxious, or on edge: 0 = Not at all Not being able to stop or control worryin = Not at all Worrying too much about different things: 0 = Not at all Trouble relaxin = Not at all Being so restless that it is hard to sit still: 0 = Not at all Becoming easily annoyed or irritable: 0 = Not at all Feeling afraid as if something awful might happen: 0 = Not at all Total LINCOLN-7 score (0-4 normal; 5-9 mild; 10-14 moderate; 15-21 severe): 0 Source: Developed by Drs. Brian Ang, Lisa Gomez, Johan Ivy and colleagues, with an educational tammi from [employer]. LINCOLN-7 Assessment Billing LINCOLN-7 Assessment Tool: LINCOLN-7 Assessment 38900 Physical exam (Primary Care) Vital Signs: Last Vital Signs Pulse 50 11/27/24 15:14 BP 116/74 11/27/24 15:14 Pulse Ox 98 11/27/24 15:14 BMI result Body Mass Index 25.8 Tobacco/Smoking Status: Tobacco use Status Tobacco use date assessed 11/27/24 11/27/24 15:20 Patient Tobacco Use Status Never used Tobacco 11/27/24 15:20 e-Cigarette/Vaping Use Never Used 11/27/24 15:20 PHQ-9: PHQ-9 Score PHQ-9: Total score 0 11/27/24 15:20 Depression Screening Interpretation: Negative Thrive Assessment: Date of Thrive Assessment Date Thrive assessed 11/27/24 11/27/24 15:20 Currently or been in a relationship where the following occur: No concerns reported Coding Level of Care Code Est Pt Level 3 (87018) Diagnoses Mild episode of recurrent major depressive disorder F33.0 Active/Remission status: currently active Major depression episode severity: mild Microcytic anemia D50.9 Additional Codes LINCOLN-7 Assessment Billing - LINCOLN-7 Assessment Tool: LINCOLN-7 Assessment 68623 ([id number]) PHQ-9 - 14424 - PHQ-9 Billing: Yes ([id number]) Assessment & Plan Assessment & Plan (1) Major depression, recurrent: Code(s): F33.9 - Major depressive disorder, recurrent, unspecified Category: Medical Qualifiers: Active/Remission status: currently active Major depression episode severity: mild Qualified Code(s): F33.0 - Major depressive disorder, recurrent, mild (2) Microcytic anemia: Code(s): D50.9 - Iron deficiency anemia, unspecified Category: Medical Plan History - bulleted - The patient is a 39-year-old male presenting with ongoing irritability and mood changes. - Reports slight improvements in irritability with current medication at 50 mg but still experiences issues. - Reports the ability to communicate more effectively with parents due to improved mood. - Reflects on the impact of medication on mood, social interactions, and confidence levels. - Mild anemia noted in laboratory results from August 27. - Hemoglobin level recorded at 13.6 g/dL, below the normal range for males. - Denies symptoms such as hemorrhoids or constipation. Review of Systems - Psychosocial: Reports improved emotional communication with family; Denies calling home frequently. - Gastrointestinal: Denies hemorrhoids, constipation. - General: No fever no chills - Neurological: No headaches no dizziness - Ear nose throat: No sore throat no hearing difficulty no ear pain - Cardiovascular: No syncope, no chest pain, no palpitations - Gastrointestinal: No nausea vomiting or diarrhea - Endocrine: No polyuria polydipsia no heat intolerance - Genitourinary: No dysuria , no blood in urine Physical Exam - General: No acute distress - HEENT: No acute findings - Neck: Supple - Respiratory system: Able to talk in full sentences, no audible wheeze - cardiovascular: S1-S2 regular in rate and rhythm - Gastrointestinal: No pain - Extremities: No new findings - RESPITE PROVIDER: Alert awake oriented x3 motor sensory intact - Skin: Normal turgor Patient Instructions - Adjust medication dosage to 100 mg , confirming patient is comfortable with this adjustment. - Schedule follow-up labs prior to the next visit in three months to reassess anemia. - Encourage ongoing communication with family through regular text messages to maintain connections. Orders: Orders Complete Blood Count Auto Diff Today D50.9 - Iron deficiency anemia, unspecified, F33.0 - Major depressive disorder, recurrent, mild Comprehensive Met. Panel Today D50.9 - Iron deficiency anemia, unspecified, F33.0 - Major depressive disorder, recurrent, mild LDL Cholesterol Direct Today D50.9 - Iron deficiency anemia, unspecified, F33.0 - Major depressive disorder, recurrent, mild Ferritin Today D50.9 - Iron deficiency anemia, unspecified, F33.0 - Major depressive disorder, recurrent, mild TSH reflex Free T4 Today D50.9 - Iron deficiency anemia, unspecified, F33.0 - Major depressive disorder, recurrent, mild Vitamin D 25-OH (D2 and D3) Today D50.9 - Iron deficiency anemia, unspecified, F33.0 - Major depressive disorder, recurrent, mild Vitamin B12 Today D50.9 - Iron deficiency anemia, unspecified, F33.0 - Major depressive disorder, recurrent, mild Medications: Changed From sertraline 50 mg PO DAILY 90 days 90 tabs 0RF To sertraline 100 mg PO ONCE 90 tabs 0RF 90 days
== END 2024-11-27 15:52 | disposition home or self-care (01) ==
PROVIDERS: PCP Internal Medicine; Visit Provider Internal Medicine
DX: F33.0 Major depressive disorder, recurrent, mild (principal); D50.9 Iron deficiency anemia, unspecified

== ENCOUNTER → 2024-11-27 15:13 | Outpatient (BNVA) | payer OTHER, SELFPAY | PROVIDERS: PCP Internal Medicine; Visit Provider Internal Medicine | DX: F33.0 Major depressive disorder, recurrent, mild (principal) | CPT/HCPCS: 96127; 99212 ==

== ENCOUNTER 2025-07-14 13:47 | Outpatient (AMB) | payer OTHER, SELFPAY ==
[2025-07-14 13:48] VITALS: BP 116/78; PULSE 57; O2SAT 99; BMI 28.0
--- NOTE | 2025-07-14 13:48 | MHC.PC.OV ---
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 Erectile Dysfunction: - The patient reports difficulties with maintaining an erection. - Symptoms have been possibly present after starting sertraline. - Patient experiences lack of libido He is due for labs I have ordered testosterone level to screen for any iron-deficiency. Mild Anemia: - Previous labs in August of last year showed mild anemia. - No symptoms of hemorrhoids or constipation noted. - Labs were ordered in November which patient forgot to do Medications: - Sertraline 100 mg , as mood stabilizer Social History: - Patient reports having an awesome job. - No additional social determinants of health were mentioned. Problem List - Erectile Dysfunction - Mild Anemia - mood disorder Patient Instructions - Continue current dose of sertraline. - Schedule and complete laboratory tests for CBC, iron, B12, and vitamin D levels. - further management after the lab report Review of Systems - General: No fever no chills - Neurological: No headaches no dizziness - Ear nose throat: No sore throat no hearing difficulty no ear pain - Cardiovascular: No syncope, no chest pain, no palpitations - Gastrointestinal: No nausea vomiting or diarrhea - Endocrine: No polyuria polydipsia no heat intolerance - Genitourinary: No dysuria , no blood in urine Physical Exam General: No acute distress HEENT: No acute findings Neck: Supple Respiratory system: Able to talk in full sentences, no audible wheeze Cardiovascular: S1-S2 regular in rate and rhythm Gastrointestinal: No pain Extremities: No swelling of ankles 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 1. Little interest or pleasure in doing things: not at all 2. Feeling down, depressed, or hopeless: not at all 3. Trouble falling or staying asleep, or sleeping too much: not at all 4. Feeling tired or having little energy: several days 5. Poor appetite or overeating: not at all 6. Feeling bad about yourself - or that you are a failure or have let yourself or your family down: not at all 7. Trouble concentrating on things, such as reading the newspaper or watching television: not at all 8. Moving or speaking so slowly that other people could have noticed. Or the opposite - being so fidgety or restless that you have been moving around a lot more than usual: not at all 9. Thoughts that you would be better off or of hurting yourself in some way: not at all Total score: 1 Depression Screening Interpretation: Negative Depression Screening Done: Yes 12417 - PHQ-9 Billing: Yes Source: Developed by Drs. Brian Ang, Lisa Gomez, Johan Ivy and colleagues, with an educational tammi from [employer]. Thrive Questionnaire Date Thrive assessed: 11/27/24 I am a: Patient What is your living situation today?: I have a steady place to live Within the past 12 months, did the food you bought not last and you didn't have the money to get more?: Never true Within the past 12 months, did you worry whether your food would run out before you got money to buy more?: Never true Do you have trouble paying for medicines?: No Do you have trouble getting transportation to medical appointments?: No Do you have trouble paying your heating and electricity bill?: No Do you have trouble taking care of your child, family member or friend?: No Do you have trouble with day-to-day activities such as bathing, preparing meals, shopping, managing finances, etc.?: No Are you currently unemployed and looking for a job?: No Are you interested in more education?: No Please select the resources that you would like help with: None Currently or been in a relationship where the following occur: No concerns reported THRIVE Score: 0 LINCOLN-7 AMB Questionnaire LINCOLN-7 Date LINCOLN - 7 assessed: 11/27/24 Source: Developed by Drs. Brian Ang, Lisa Gomez, Johan Ivy and colleagues, with an educational tammi from [employer]. Physical exam (Primary Care) Vital Signs: Last Vital Signs Pulse 57 07/14/25 13:48 BP 116/78 07/14/25 13:48 Pulse Ox 99 07/14/25 13:48 Oxygen Delivery Method Room Air 07/14/25 13:48 BMI result Body Mass Index 28.0 Tobacco/Smoking Status: Tobacco use Status Tobacco use date assessed 11/27/24 07/14/25 13:53 Patient Tobacco Use Status Never used Tobacco 07/14/25 13:53 e-Cigarette/Vaping Use Never Used 07/14/25 13:53 PHQ-9: PHQ-9 Score PHQ-9: Total score 1 07/14/25 13:53 Depression Screening Interpretation: Negative Thrive Assessment: Date of Thrive Assessment Date Thrive assessed 11/27/24 07/14/25 13:53 Currently or been in a relationship where the following occur: No concerns reported Coding Level of Care Code Est Pt Level 4 (19371) Diagnoses Erectile disorder N52.9 Mild episode of recurrent major depressive disorder F33.0 Active/Remission status: currently active Major depression episode severity: mild Microcytic anemia D50.9 Additional Codes PHQ-9 - 35180 - PHQ-9 Billing: Yes ([id number]) Assessment & Plan Assessment & Plan (1) Erectile disorder: Code(s): N52.9 - Male erectile dysfunction, unspecified Category: Medical (2) Major depression, recurrent: Code(s): F33.9 - Major depressive disorder, recurrent, unspecified Category: Medical Qualifiers: Active/Remission status: currently active Major depression episode severity: mild Qualified Code(s): F33.0 - Major depressive disorder, recurrent, mild (3) Microcytic anemia: Code(s): D50.9 - Iron deficiency anemia, unspecified Category: Medical Plan Longitudinal follow-up visit, for sertraline refill History of Present Illness The patient is a 40-year-old male presenting with issues related to sertraline use. Erectile Dysfunction: - The patient reports difficulties with maintaining an erection. - Symptoms have been possibly present after starting sertraline. - Patient experiences lack of libido He is due for labs I have ordered testosterone level to screen for any iron-deficiency. Mild Anemia: - Previous labs in August of last year showed mild anemia. - No symptoms of hemorrhoids or constipation noted. - Labs were ordered in November which patient forgot to do Medications: - Sertraline 100 mg , as mood stabilizer Social History: - Patient reports having an awesome job. - No additional social determinants of health were mentioned. Problem List - Erectile Dysfunction - Mild Anemia - mood disorder Patient Instructions - Continue current dose of sertraline. - Schedule and complete laboratory tests for CBC, iron, B12, and vitamin D levels. - further management after the lab report Orders: Orders Testosterone, Total Today N52.9 - Male erectile dysfunction, unspecified Medications: Refilled sertraline 100 mg PO ONCE 90 tabs 0RF 90 days
== END 2025-07-14 16:39 | disposition home or self-care (01) ==
LOC: HO.HMCC 13:48
PROVIDERS: PCP Internal Medicine; Visit Provider Internal Medicine
DX: N52.9 Male erectile dysfunction, unspecified (principal); F33.0 Major depressive disorder, recurrent, mild; D50.9 Iron deficiency anemia, unspecified

== ENCOUNTER 2025-07-14 13:47 | Outpatient (REF) | payer OTHER, SELFPAY ==
[2025-07-14 17:17] LABS: MANUAL DIFF FLAG NO
[2025-07-14 17:42] LABS: Hematocrit 41.0 % (42.0-52.0); Hemoglobin 13.7 g/dl (14.0-18.0); Imm Gran Abs Auto 0.02 X10*3/uL (0.00-0.03); Imm Gran Pct Auto 0.4 % (0.0-0.4); Lymphocytes Absolute Auto 1.1 X10*3/uL (1.2-4.9); Mean Corpuscular HGB Conc 33.4 g/dl (31.0-36.0); Mean Corpuscular Hemoglobin 26.9 pg (27.0-33.0); Mean Corpuscular Volume 80.4 fL (80.0-98.0); NRBC Abs Auto 0.000 X10*3/uL (0.0-0.012); NRBC Pct Auto 0.0 /100WBC (0.0-0.2); Platelet Count 286 X10*3/uL (160-400); Red Blood Count 5.10 X10*6/uL (4.60-5.80); White Blood Count 5.0 X10*3/uL (4.8-10.8)
[2025-07-14 18:12] LABS: Alanine Aminotransferase 40 U/L (0-40); Albumin Level 4.8 g/dL (3.5-5.0); Alkaline Phosphatase 49 U/L (39-117); Anion Gap 15 (12-20); Aspartate Amino Transferase 39 U/L (5-37); Blood Urea Nitrogen 16 mg/dL (9-16); Calcium 9.7 mg/dL (8.4-10.2); Carbon Dioxide 27 mmol/L (22-29); Chloride 106 mmol/L (96-108); Estimated Glomerular Filt Rate 59; Potassium 4.5 mmol/L (3.3-5.1); Sodium 143 mmol/L (135-145); Total Protein 8.2 g/dL (6.5-8.0)
[2025-07-14 18:22] LABS: Vitamin B12 869 pg/mL (200-900)
[2025-07-14 18:31] LABS: Ferritin 175 ng/mL (20-250)
[2025-07-29 08:46] LABS: Vitamin D 25-OH, D2 <4; Vitamin D 25-OH, D3 30
[2025-07-29 08:47] LABS: Vitamin D 25-OH, Total 30
== END 2025-07-14 13:48 | disposition home or self-care (01) ==
LOC: HO.HMGCLDS 13:47
PROVIDERS: PCP Internal Medicine; Visit Provider Internal Medicine
DX: F33.0 Major depressive disorder, recurrent, mild (principal); D50.9 Iron deficiency anemia, unspecified; N52.9 Male erectile dysfunction, unspecified; Z79.899 Other long term (current) drug therapy
CPT/HCPCS: 36415; 80053; 82306; 82607; 82728; 83721; 84403; 84443; 85025; 96127; 99212

== ENCOUNTER 2025-11-02 08:40 | Outpatient (AMB) | payer OTHER, SELFPAY ==
--- NOTE | 2025-11-02 10:26 | MHC.PC.OV ---
Intake Visit Reasons: 3m follow up Allergies No Known Allergies Allergy (Verified 07/14/25 13:49) Medication List - Last Reconciled 11/02/25 by Yamileth Weber MD sertraline 100 mg PO ONCE 90 days Tobacco use date assessed: 11/27/24 Dental Screening Dental Screen Date: 11/27/24 HPI 3m follow up HPI Details Longitudinal follow-up visit, for sertraline refill anxeity is much better , tolerating medication , no side effects Erectile Dysfunction: - The patient reports difficulties with maintaining an erection. how ever its improving we ordered testosterone level last time, but it was not done thru lab due to lack of enough sample we will order that again . Mild Anemia: - Previous labs in August of last year showed mild anemia. - No symptoms of hemorrhoids or constipation noted. - repeat labs and iron level ordered Problem List - Erectile Dysfunction - Mild Anemia - anxiety generlize Patient Instructions - Continue current dose of sertraline. - Schedule labs - further management after the lab report Review of Systems - General: No fever no chills - Neurological: No headaches no dizziness - Ear nose throat: No sore throat no hearing difficulty no ear pain - Cardiovascular: No syncope, no chest pain, no palpitations - Gastrointestinal: No nausea vomiting or diarrhea - Endocrine: No polyuria polydipsia no heat intolerance - Genitourinary: No dysuria , no blood in urine [facility] Surgical History No pertinent past surgical history Social History Housing: House Patient Tobacco Use Status: Never used Tobacco e-Cigarette/Vaping Use: Never Used service: Yes Current occupational status: employed Cognitive needs: No Hearing needs: No Vision needs: No Questionnaire Thrive Questionnaire Date Thrive assessed: 11/27/24 LINCOLN-7 AMB Questionnaire LINCOLN-7 Date LINCOLN - 7 assessed: 11/27/24 Source: Developed by Drs. Brian Ang, Lisa Gomez, Johan Ivy and colleagues, with an educational tammi from [employer]. Physical exam (Primary Care) Tobacco/Smoking Status: Tobacco use Status Tobacco use date assessed 11/27/24 11/02/25 10:26 Patient Tobacco Use Status Never used Tobacco 11/02/25 10:26 e-Cigarette/Vaping Use Never Used 11/02/25 10:26 Thrive Assessment: Date of Thrive Assessment Date Thrive assessed 11/27/24 11/02/25 10:26 Telehealth Telehealth Telehealth Platform: [employer] Location of provider rendering services: practice address Location of patient: address on file Patient Identification confirmed using: Name, : Yes Telehealth method: video Patient verbally consented to treatment: Yes Patient verbally consented to billing insurance company: Yes Patient informed of any privacy concerns related to visit: Yes Minutes spent on Phone/Video with Pt.: 13 Coding Level of Care Code Tele Est Pt Level 3 (01029) Diagnoses Erectile disorder N52.9 Mild episode of recurrent major depressive disorder F33.0 Active/Remission status: currently active Major depression episode severity: mild Microcytic anemia D50.9 Assessment & Plan Assessment & Plan (1) Erectile disorder: Code(s): N52.9 - Male erectile dysfunction, unspecified Category: Medical (2) Major depression, recurrent: Code(s): F33.9 - Major depressive disorder, recurrent, unspecified Category: Medical Qualifiers: Active/Remission status: currently active Major depression episode severity: mild Qualified Code(s): F33.0 - Major depressive disorder, recurrent, mild (3) Microcytic anemia: Code(s): D50.9 - Iron deficiency anemia, unspecified Category: Medical Plan Longitudinal follow-up visit, for sertraline refill anxeity is much better , tolerating medication , no side effects Erectile Dysfunction: - The patient reports difficulties with maintaining an erection. how ever its improving we ordered testosterone level last time, but it was not done thru lab due to lack of enough sample we will order that again . Mild Anemia: - Previous labs in August of last year showed mild anemia. - No symptoms of hemorrhoids or constipation noted. - repeat labs and iron level ordered Problem List - Erectile Dysfunction - Mild Anemia - anxiety generlize Patient Instructions - Continue current dose of sertraline. - Schedule labs - further management after the lab report Orders: Orders Testosterone, Total Today D50.9 - Iron deficiency anemia, unspecified, F33.0 - Major depressive disorder, recurrent, mild, N52.9 - Male erectile dysfunction, unspecified Complete Blood Count Auto Diff Today D50.9 - Iron deficiency anemia, unspecified, F33.0 - Major depressive disorder, recurrent, mild, N52.9 - Male erectile dysfunction, unspecified Ferritin Today D50.9 - Iron deficiency anemia, unspecified, F33.0 - Major depressive disorder, recurrent, mild, N52.9 - Male erectile dysfunction, unspecified Vitamin B12 Today D50.9 - Iron deficiency anemia, unspecified, F33.0 - Major depressive disorder, recurrent, mild, N52.9 - Male erectile dysfunction, unspecified
== END 2025-11-02 12:37 | disposition home or self-care (01) ==
LOC: HO.HMCC 08:40
PROVIDERS: PCP Internal Medicine; Visit Provider Internal Medicine
DX: N52.9 Male erectile dysfunction, unspecified (principal); F33.0 Major depressive disorder, recurrent, mild; D50.9 Iron deficiency anemia, unspecified